=== PATIENT | female | born 1945 | race Hispanic/Latino ===

== ENCOUNTER 2017-10-05 18:13 | Observation (INO) | payer MEDICARE ==
[2017-10-05 18:36] LABS: #Basophils 0.1 thou/uL (0.0-0.2); #Eosinphils 0.3 thou/uL (0.0-0.7); #Lymphocytes 2.4 thou/uL (1.20-3.40); #Monocytes 0.9 thou/uL (0.11-0.59); #Neutrophils 6.7 thou/uL (1.40-6.50); %Eosinophils 2.5 % (0.0-10.0); %Lymphocytes 23.3 % (21.0-51.0); %Monocytes 8.5 % (0.0-10.0); %Neutrophils 64.7 % (42.0-75.0); Hemoglobin 11.1 g/dL (12.0-16.0); Mean Corpuscular HGB CONC 34.2 g/dL (32.0-36.0); Mean Corpuscular Volume 84.9 fL (78.0-98.0); Mean Platelet Volume 6.7 fL (7.4-10.4); Platelet Count 306 thou/uL (130-400); Red Blood Cell (RBC) Count 3.81 mill/uL (4.20-5.40); White Blood Cell (WBC) Count 10.4 thou/uL (4.8-10.8)
[2017-10-05 18:43] LABS: PTT 28.5 SEC (22.9-36.1); Prothrombin Time 13.6 SEC (12.0-14.7)
[2017-10-05 18:50] LABS: ALT (SGPT) 17 U/L (8-55); AST (SGOT) 21 U/L (5-34); Albumin 3.8 g/dL (3.4-4.8); Alkaline Phosphatase 111 U/L (40-150); Anion Gap 12 mmol/L (10-20); BUN (Urea Nitrogen) 23 mg/dL (9.8-20.1); Bilirubin, Total 0.3 mg/dL (0.2-1.2); Calc. Creatinine Clearance 0 mL/min (70-130); Calcium 8.9 mg/dL (7.8-10.44); Carbon Dioxide 30 mmol/L (23-31); Chloride 103 mmol/L (98-107); Estimated GFR-MDRD 45; Globulin 3.3 g/dL (2.4-3.5); Glucose 148 mg/dL (83-110); Potassium 4.2 mmol/L (3.5-5.1); Protein, Total 7.1 g/dL (6.0-8.3); Sodium 141 mmol/L (136-145)
[2017-10-05 18:54] LABS: CKMB 1.5 ng/mL (0-6.6); Troponin I Less than 0.010 ng/mL (< 0.028)
--- NOTE | 2017-10-05 19:02 | CT ---
NONCONTRAST HEAD CT: 10/05/17 HISTORY: Stroke activation. Left sided facial droop. Right sided numbness. Patient last seen normal at 11 a.m. TECHNIQUE: Noncontrast head CT is performed from skull base to skull vertex. FINDINGS: No parenchymal hemorrhage. No extra-axial hematoma. No midline shift. Basilar cisterns are patent. Br ain volume, age appropriate. Cortical carlton-white matter differentiation is preserved. Ventricles and sulci are patent and symmetric. White matter hypodensities due to chronic small vessel ischemic abdalla es are noted. Adequate aeration of the sinuses and mastoid air cells. Calvarium is intact. There is cavernous carot id atherosclerosis. 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 IMPRESSION: No acute intracranial process. Results of the study discussed with Dr. Lozada. 10/05/17 at 6:41 p.m. Code CR POS: ROHAN
[2017-10-05] MEDS ORDERED: Acetaminophen 325 MG TAB PO PRN (22:07)
[2017-10-05] MEDS ORDERED: hydrALAZINE 20 MG/ML VIAL SLOW IVP PRN (22:08)
[2017-10-05] MEDS ORDERED: Melatonin 3 MG TAB PO PRN (22:09)
[2017-10-05 23:23] VITALS: BMI 23.1
[2017-10-06 05:30] LABS: #Eosinphils 0.4 thou/uL (0.0-0.7); #Lymphocytes 2.5 thou/uL (1.20-3.40); #Neutrophils 8.1 thou/uL (1.40-6.50); %Basophils 0.4 % (0.0-1.0); %Eosinophils 3.2 % (0.0-10.0); %Lymphocytes 20.6 % (21.0-51.0); %Monocytes 8.1 % (0.0-10.0); %Neutrophils 67.7 % (42.0-75.0); Hemoglobin 10.2 g/dL (12.0-16.0); Mean Corpuscular HGB CONC 34.4 g/dL (32.0-36.0); Mean Corpuscular Hemoglobin 29.3 pg (27.0-31.0); Mean Corpuscular Volume 85.4 fL (78.0-98.0); Mean Platelet Volume 6.8 fL (7.4-10.4); Platelet Count 298 thou/uL (130-400); RBC Distribution Width 12.2 % (11.5-14.5); Red Blood Cell (RBC) Count 3.47 mill/uL (4.20-5.40); White Blood Cell (WBC) Count 11.9 thou/uL (4.8-10.8)
[2017-10-06 05:46] LABS: Anion Gap 12 mmol/L (10-20); BUN (Urea Nitrogen) 21 mg/dL (9.8-20.1); Calc. Creatinine Clearance 45 mL/min (70-130); Calcium 8.6 mg/dL (7.8-10.44); Carbon Dioxide 27 mmol/L (23-31); Cardiac Risk 4.6 (Less than 4.5); Chloride 105 mmol/L (98-107); Cholesterol 189 mg/dl (< 200 Desired); Estimated GFR-MDRD 52; Glucose 184 mg/dL (83-110); HDL Cholesterol 41 mg/dL (>60 Neg Risk); LDL Cholesterol, Calculated 72 mg/dL; Potassium 4.2 mmol/L (3.5-5.1); Sodium 140 mmol/L (136-145); Triglycerides 380 mg/dL (Less than 150)
[2017-10-06] MEDS ORDERED: Magnesium Sulfate 4 GM in Sodium Chloride 0.9% 250 ML 250 ML IVPB SCH (07:00)
--- NOTE | 2017-10-06 07:21 | HP ---
CHIEF COMPLAINT: Right-sided facial weakness. HISTORY OF PRESENT ILLNESS: Patient is a very pleasant 72-year-old female with a history of diabetes and hypertension who presented to the hospital with complaints of right-sided weakness. Patient sta ricardo that she was in her well state of health when she started noticing her right-sided facial droop a nd had some slurring of speech. Patient stated that her granddaughter noticed that she had significa nt droopiness of her right lower face and also her right eyelid. The patient stated that two days ag o, she had some nausea, some headache and some sinus pain for which she went into her walk-in clinic and was prescribed Augmentin and was diagnosed with sinusitis. She denies any chest pain, fevers, ch ills, nausea, shortness of breath or any other abnormalities. The patient denies any right upper ext remity and right lower extremity weakness. PAST MEDICAL HISTORY: She has a history of diabetes, hypertension, hyperlipidemia. 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 SOCIAL HISTORY: She still continues to smoke 3-4 cigarettes a week socially and denies any alcohol o r drug use. FAMILY HISTORY: Mother and father both had diabetes and heart problems. Father at the a ge of 59. Mother is still living at 74. REVIEW OF SYSTEMS: All negative except for the ones mentioned above in the HPI. PHYSICAL EXAMINATION: VITAL SIGNS: Temperature of 98.2, 79, 18, 97% on room air, blood pressure 191/86. GENERAL: She is awake, alert, oriented x3, does not appear in distress. CARDIOVASCULAR: S1, S2 present. No murmurs, rubs or gallops. LUNGS: Clear to auscultation, no rhonchi or wheezes noted. ABDOMEN: Soft, nontender. Bowel sounds are present x2. EXTREMITIES: She does have a below the knee amputation of the left lower extremity, right lower extr emity is intact. NEUROLOGIC: She does have droopiness noted in her right lower facial area; however, she is able to r aise her eyebrows. She is unable to wrinkle her forehead and she is unable to puff her cheeks. Her bilateral upper extremity strength is intact 5/5, lower extremity right leg strength is intact, sensa tion to bilateral upper facial area is intact and bilateral upper extremity and lower extremity is in tact. Wkqkjg-de-rnuu is intact. Dysdiadochokinesia is intact and no pronator drift noted. LABORATORY DATA: As the following: WBC is 10.4, hemoglobin of 11.1, hematocrit of 32.4, platelets o f 306. Sodium 141, potassium 4.2, chloride 103, BUN of 23, creatinine 1.17, sugar of 148. Troponin x1 was negative. ASSESSMENT AND PLAN: The patient is a very pleasant 72-year-old female who presented to the hospital for possible right-sided weakness. 1. Right-sided weakness could be secondary to transient ischemic attack versus a Rose's palsy. The patient has recently been diagnosed with sinusitis, which I believe most likely secondary to viral si nce its onset was only 2-3 days and she had no significant nasal drainage. However, given her risk f actors of being a diabetic, hypertension and her age, we will do a stroke workup including an MRI bra in and echocardiogram and carotid Dopplers. Her CT of the head was normal. It just indicated some w moses matter hypodensity due to chronic small vessel ischemic changes related and also we will check a lipid panel. 2. Diabetes. We will continue patient's home dose of insulin and also put on sliding scale as neede d. 3. Chronic kidney disease, appears a creatinine of 1.17. We will continue to monitor. 4. Deep venous thrombosis prophylaxis. We will put the patient on some subcu heparin.
[2017-10-06] MEDS ORDERED: Prevnar 13-Val Conj/PF 0.5 ML SYRINGE IM ONE (09:00)
[2017-10-06] MEDS ORDERED: Atenolol 25 MG TAB PO SCH (09:00)
[2017-10-06] MEDS ORDERED: Enoxaparin Sodium 40 MG/0.4 ML SYRINGE SC SCH (09:00)
[2017-10-06] MEDS ORDERED: Insulin Glargine 24 UNITS in Pre-Filled Syringe 1 EACH SC SCH (09:00)
[2017-10-06] MEDS ORDERED: Aspirin 81 mg Enteric Coated Tablet PO SCH (09:00)
[2017-10-06] MEDS ORDERED: LEVEMIR 24 UNIT SQ SCH (09:00)
[2017-10-06] MEDS ORDERED: Amoxicillin/Potassium Clav 875 MG TAB PO SCH (09:00)
--- NOTE | 2017-10-06 10:38 | MRI ---
MRI BRAIN WITHOUT CONTRAST: Date: 10/06/17 Multiplanar, multisequential imaging of brain obtained according to brain protocol. INDICATION: Stroke. Generalized weakness. Correlation made to CT head performed yesterday evening. FINDINGS: There is cortical atrophy. Moderate to severe chronic ischemic white matter change. No evidence of re stricted diffusion. There is no evidence of acute infarct. There is no evidence of mass or edema. No evidence of hemorrhage. The intracranial internal carotid arteries, proximal cerebral arteries, and basilar artery show flow- voids. Paranasal sinuses and mastoids appear clear. IMPRESSION: Moderate cortical atrophy and moderate to severe chronic ischemic white matter change. No evidence of acute infarct. POS: ROHAN
--- NOTE | 2017-10-06 11:12 | PDOC.EVN ---
Event Note - Event Note Event Note: EVALUATED PATIENT. STILL HAS SOME RIGHT FACIAL DROOP. SHE DOES ADMIT TO SYMPTOMS OF A VIRAL SYNDROME THE DAY BEFORE THE ONSET OF THESE SYMPTOMS. MRI WITH NO ACUTE FINDINGS. STRONGLY SUSPECT ROONEY'S PALSY. START PREDNISONE AND VALACYCLOVIR. WILL NOT ORDER CAROTID DOPPLERS AT THIS TIME UNLESS NEUROLOGY FEELS OTHERWISE. WILL AWAIT NEURO EVAL.
[2017-10-06 11:36] VITALS: TEMP 98.6
[2017-10-06] MEDS ORDERED: predniSONE 20 MG TAB PO SCH (12:00)
[2017-10-06] MEDS ORDERED: predniSONE 50 MG TAB PO SCH (12:00)
[2017-10-06] MEDS ORDERED: valACYclovir 500 MG TAB PO SCH (15:00)
[2017-10-06 15:47] VITALS: BP 205/95
[2017-10-06] MEDS ORDERED: Insulin NPH/Reg Insulin Hm 300 UNITS/3 ML VIAL SC SCH (21:00)
[2017-10-06] MEDS ORDERED: Non-Formulary Item 1 EACH (Insulin Aspart Prot/Insuln Asp [Novolog Mix 70-30 Flexpen Syrn SQ SCH (21:00)
[2017-10-06] MEDS ORDERED: Atorvastatin Calcium 40 MG TAB PO SCH (21:00)
[2017-10-06] MEDS ORDERED: Rosuvastatin 10 MG TAB PO SCH (21:00)
--- NOTE | 2017-10-06 21:19 | CON ---
DATE OF CONSULTATION: 10/06/2017 REFERRING PHYSICIAN: Zee Blank MD REASON FOR CONSULTATION: Right facial weakness. HISTORY OF PRESENT ILLNESS: Ms. Wagner is a pleasant 72-year-old female who has been co nsulted for evaluation of right facial weakness. She reports that on yesterday, she started noticing numbness in the right perioral region. Later on in the day, her granddaughter noticed that her righ t side of the face was drooping. She also noticed the right eyelid droop. This concerned them that s he may be having acute stroke and thus she was brought to the [facility]. She denied having any numbness, tingling or weakness in upper or lower extremities. She denied difficulty with balance. She denied chest pain, palpitation, headache, lightheadedness or dizziness. She did compla in of having blurry vision in the right eye. PAST MEDICAL HISTORY: Significant for hypertension, diabetes, hyperlipidemia. PAST SURGICAL HISTORY: Significant for left BKA due to diabetic ulcers. SOCIAL HISTORY: She smokes 3-4 cigarettes a week. She denies alcohol use or illicit drug use. FAMILY HISTORY: Significant for mother and father with diabetes and heart problems. CURRENT MEDICATIONS: Please review MAR. ALLERGIES: No known drug allergies. REVIEW OF SYSTEMS: As mentioned above, which was negative. PHYSICAL EXAMINATION: VITAL SIGNS: Blood pressure of 143/67, pulse of 76, temperature of 98.6, respirations of 16, O2 sats of 97% on room air. GENERAL: Well-developed, well-nourished female, in no apparent distress. RESPIRATORY: Clear to auscultation bilaterally. CARDIOVASCULAR: Regular rate and rhythm. NEUROLOGIC: Mental status: The patient is awake, alert, oriented x3. Speech and language: Fluent speech. Cranial nerves: Pupils are 3 mm and reactive. Visual palomino are intact. Extraocular muscl es are intact. No nystagmus is noted. There is an unusual finding in the left, she has weakness in the left eyelid closure and left face. There is a loss of left nasolabial fold; however, patient is complaining of right-sided numbness and weakness. Motor exam showed normal tone and bulk with a 5/5 strength in both upper extremities and right lower extremity. She has a left BKA. Sensory: Sensati on is intact and symmetric. Deep tendon reflexes 2+ reflexes in both upper extremities and right low er extremity. Babinski: Plantar responses flexion on the right side, unable to perform on the left side. Coordination intact to cxijrr-vbqp-pzxdnd and finger tapping bilaterally. LABORATORY DATA: Reviewed, which included CBC, coag panel, CMP, lipid profile, which is significant for WBC of 11.9, hemoglobin 10.2, hematocrit 29.6, glucose of 381, total cholesterol 189, LDL of 72, HDL 41 and triglycerides of 380, otherwise unremarkable. IMAGING STUDIES: MRI brain without contrast was reviewed, which showed no acute intracranial abnorma lity. IMPRESSION: Rose's palsy. Ms. Wagner is a pleasant 72-year-old female who presented wit h the facial numbness and weakness. Per exam, she has a left facial weakness rather than the right f acial weakness, although she feels her right side being weak. In any case, her MRI brain has showed no acute intracranial abnormality. Her symptoms are likely due to Rose's palsy. This is likely in r esponse to recent sinus infection that she had 2-3 days ago. At this time, I would recommend startin g her on prednisone taper along with Valtrex 500 mg q.8 hours for 7 days. The patient was advised to put Artificial Tears drops in both eyes every 4-6 hours for the 5-7 days. She is okay to be dischar ged to home and follow up with her primary care physician.
[2017-10-07] MEDS ORDERED: predniSONE 20 MG TAB PO SCH (08:00)
[2017-10-07] MEDS ORDERED: predniSONE 50 MG TAB PO SCH (08:00)
[2017-10-07] MEDS ORDERED: glipiZIDE 10 MG TAB PO SCH (09:00)
--- NOTE | 2017-10-08 11:30 | DIS ---
DATE OF ADMISSION: 10/05/2017 DATE OF DISCHARGE: 10/06/2017 DISCHARGE DIAGNOSES: 1. Rose's palsy. 2. Diabetes. 3. Hypertension. 4. Hyperlipidemia. 5. History of left bilateral knee amputation due to diabetic ulcers. 6. Tobacco abuse, but limited. HISTORY: This patient is a 72-year-old female with the history of diabetes, hypertension, and hyperl ipidemia who had the abrupt onset of some slurred speech and facial numbness. The patient primarily was experiencing numbness on the right side of her face. On further questioning, the patient reporte d that she did experience some fever, generalized fatigue and malaise on the day prior to the onset o f these symptoms. She had seen her PCP and was diagnosed with a sinus infection. The patient had no other significant related neurological symptoms. She did feel like her speech was slightly better a nd she was swallowing adequately. She initially had a CT scan performed when she presented to the em ergency department, which was basically unremarkable for any acute intracranial process. HOSPITAL COURSE: The patient was placed in observation for possible transient ischemic attack versus stroke versus Rose's palsy. She subsequently underwent an MRI, which showed only moderate cortical atrophy and moderate to severe chronic ischemic white matter changes. There is no evidence of acute stroke. Echocardiogram was performed, which revealed a normal ejection fraction at 60%-65% with poss ible diastolic dysfunction. The patient's symptoms remain largely unchanged. She was evaluated by Dr. Kumar and Neurology. While the patient's facial numbness type symptoms were more related to the right side, she was experiencing more weakness on the left side of her face. How ever, given the generally negative workup in the antecedent viral syndrome, it was felt strongly that this patient had Rose's palsy rather than an ischemic event. It was felt that the patient was stabl e for discharge to home. DISPOSITION: The patient will be discharged to home. Her activity will be as tolerated. She will b e on a diabetic diet. DISCHARGE MEDICATIONS: She will have prednisone 60 mg daily for a total of 6 days and then taper by 10 mg per day until complete. She will have valacyclovir 1000 mg p.o. t.i.d. She will have her usua l medications of atenolol 25 mg daily, sertraline 50 mg p.o. at bedtime, aspirin 81 mg daily, glipizi de 2 p.o. daily, rosuvastatin 10 mg p.o. at bedtime, enalapril 10 mg daily, Levemir 24 units subcu da monet, and 70/30 NovoLog mix 10 units b.i.d. She is to discontinue the amoxicillin.
== END 2017-10-06 18:09 | disposition home or self-care (01) ==
LOC: ERS 18:13 → 2SE 20:00
PROVIDERS: ADMIT Family Medicine; ATTEND Family Medicine
DX: G51.0 Bell's palsy (principal); I12.9 Hypertensive chronic kidney disease with stage 1 through stage 4 chronic kidney disease, or unspecified chronic kidney disease; E11.22 Type 2 diabetes mellitus with diabetic chronic kidney disease; N18.9 Chronic kidney disease, unspecified; E78.5 Hyperlipidemia, unspecified; F17.210 Nicotine dependence, cigarettes, uncomplicated
CPT/HCPCS: 70450; 70551; 80048; 80053; 80061; 82553; 82962 ×2; 83735; 84484; 85025 ×2; 85610; 85730; 93005; 93306; 96365; 96366; 96375; 96376; 97139; 99285; G0378; G8978; G8979; G8980; 36415; 36416; A4216; G8996-GN-CJ; G8997-GN-CJ; G8998-GN-CJ; J0360; J1650; J3475; J7050; J7506

== ENCOUNTER 2019-05-27 12:07 | Outpatient (CLI) | payer MEDICARE ==
--- NOTE | 2019-05-27 14:48 | RAD ---
9THREE VIEWS OF THE RIGHT TOES: 05/27/19 COMPARISON: None. HISTORY: Diabetic foot ulcer in the plantar aspect of the great toe. FINDINGS: There is extensive atherosclerotic calcification involving the imaged forefoot. There is prominent de generative change at the first metatarsophalangeal joint with joint space narrowing, subchondral scle rosis and osteophyte formation. No evidence for osseous destruction. No subcutaneous gas or radiopaqu e foreign body. No acute fracture or dislocation. Degenerative change and atherosclerotic disease. No acute fracture or dislocation. If there is clinic al concern for osteomyelitis, MRI advised. IMPRESSION: No acute findings. Prominent degenerative change at the first metatarsophalangeal joint. Atherosclero tic disease. POS: TPC
== END 2019-05-27 12:08 | disposition home or self-care (01) ==
LOC: BICRAD 12:07
PROVIDERS: ATTEND Podiatrist
DX: E11.621 Type 2 diabetes mellitus with foot ulcer (principal); L97.519 Non-pressure chronic ulcer of other part of right foot with unspecified severity; I73.9 Peripheral vascular disease, unspecified; M19.071 Primary osteoarthritis, right ankle and foot; I70.90 Unspecified atherosclerosis

== ENCOUNTER 2019-06-19 18:43 | Inpatient (IN) | payer MEDICARE ==
--- NOTE | 2019-06-19 19:23 | RAD ---
RIGHT FOOT THREE VIEW: 06/19/19 HISTORY: Pain. Black toe. COMPARISON: Radiograph 05/27/19. FINDINGS: There is high grade soft tissue swelling of the great toe especially around the distal phalanx. Mild hallux valgus deformity. Enthesopathic changes Achilles tendon, plantar fascia, and posterior tibial tendon insertions. Moderate vascular calcifications. Lisfranc interval appears to be maintained. No erosions or periostitis is appreciated. IMPRESSION: 1. Soft tissue swelling over the distal phalanx of the great toe can be from underlying infectio n. No definite evidence of osteomyelitis is yet appreciated. If clinically warranted, MRI is recommen ded. 2. Likely a plantar soft tissue ulcer along the medial plantar aspect of the great toe at the in terphalangeal joint location. POS: HOME
[2019-06-19 21:13] LABS: #Basophils 0.1 thou/uL (0.0-0.2); #Eosinphils 0.4 thou/uL (0.0-0.7); #Lymphocytes 2.4 thou/uL (1.20-3.40); #Monocytes 1.1 thou/uL (0.11-0.59); #Neutrophils 11.9 thou/uL (1.40-6.50); %Basophils 0.6 % (0.0-1.0); %Eosinophils 2.4 % (0.0-10.0); %Lymphocytes 15.1 % (21.0-51.0); %Monocytes 7.1 % (0.0-10.0); %Neutrophils 74.8 % (42.0-75.0); Hemoglobin 9.2 g/dL (12.0-16.0); Mean Corpuscular HGB CONC 33.1 g/dL (32.0-36.0); Mean Corpuscular Hemoglobin 28.3 pg (27.0-31.0); Mean Corpuscular Volume 85.5 fL (78.0-98.0); Platelet Count 509 thou/uL (130-400); RBC Distribution Width 11.6 % (11.5-14.5); Red Blood Cell (RBC) Count 3.24 mill/uL (4.20-5.40); White Blood Cell (WBC) Count 15.9 thou/uL (4.8-10.8)
[2019-06-19 21:33] LABS: ALT (SGPT) 8 U/L (8-55); AST (SGOT) 12 U/L (5-34); Albumin 3.7 g/dL (3.4-4.8); Alkaline Phosphatase 135 U/L (40-110); Anion Gap 16 mmol/L (10-20); BUN (Urea Nitrogen) 26 mg/dL (9.8-20.1); Bilirubin, Total 0.3 mg/dL (0.2-1.2); Calc. Creatinine Clearance 0 mL/min (70-130); Carbon Dioxide 24 mmol/L (23-31); Chloride 95 mmol/L (98-107); Estimated GFR-MDRD 26; Globulin 3.9 g/dL (2.4-3.5); Glucose 465 mg/dL (83-110); Potassium 3.9 mmol/L (3.5-5.1); Protein, Total 7.6 g/dL (6.0-8.3); Sodium 131 mmol/L (136-145)
[2019-06-19] MEDS ORDERED: Ondansetron PF 4 MG/2 ML Vial ONE (22:01)
[2019-06-19] MEDS ORDERED: Morphine 4 MG/ML VIAL ONE ×2 (22:01→23:35)
[2019-06-20] MEDS ORDERED: Cefepime 2 GM VIAL ONE (00:16)
[2019-06-20] MEDS ORDERED: hydrALAZINE 20 MG/ML VIAL ONE (00:43)
[2019-06-20] MEDS ORDERED: Vancomycin 1 GM/200 ML BAG ONE (01:13)
[2019-06-20 02:25] VITALS: BMI 21.6
[2019-06-20] MEDS ORDERED: Morphine 2 MG/ML SYRINGE SLOW IVP SCH (02:30)
[2019-06-20] MEDS: Sodium Chloride 0.9% 1,000 ML IV SCH ×2 (02:42→11:15)
[2019-06-20] MEDS ORDERED: Senokot S 8.6-50 MG TAB PO PRN (05:50)
[2019-06-20] MEDS: Morphine 2 MG/ML SYRINGE SLOW IVP PRN (07:31)
[2019-06-20] MEDS: Lactated Ringer's 1,000 ML IV SCH ×2 (07:31→20:24)
--- NOTE | 2019-06-20 09:53 | CON ---
DATE OF CONSULTATION: HISTORY OF PRESENT ILLNESS: This is an unfortunate 74-year-old female who has a nonhealing wound on her right great toe, having had a previous left nlvks-mwx-olyi amputation for a nonhealing wound on her left great toe about 7 years ago. The patient underwent angiography last month, and was found to have small-vessel disease with an angioplasty of a moderate SFA stenosis being performed, but nothing could be done with her tibioperoneal disease. Comorbidities include diabetes mellitus with an A1c of 10.2, smoking history of less than a pack a week, hypertension, and chronic kidney disease. MEDICATIONS: Include: 1. Levemir 10 units a day. 2. Enalapril 5 mg a day. 3. Aspirin 81 a day. 4. Sertraline 50 mg a day. 5. Amlodipine 5 mg a day. 6. Glipizide 20 mg a day. 7. Glimepiride 4 mg daily. 8. Tramadol for pain. ALLERGIES: NONE KNOWN. SOCIAL HISTORY: She lives with her family. As mentioned, slight social cigarette smoker. PAST SURGICAL HISTORY: 1. Hysterectomy. 2. Cholecystectomy. 3. Cataract surgeries. 4. Left qbpze-vqo-cwum amputation in 2011. 5. Lateral ray amputations in 2011. 6. Removal of 5th metatarsal head in 2011. PAST MEDICAL HISTORY: 1. Diabetes. 2. Hyperlipidemia. 3. Depression. 4. Chronic anemia. 5. Chronic kidney disease. 6. Hypertension. 7. Peripheral vascular disease. 8. History of West Nile encephalopathy. PHYSICAL EXAMINATION: GENERAL: An alert and cooperative lady. NECK: Soft carotid bruits bilaterally. CARDIAC: Regular rate and rhythm. No murmurs. LUNGS: Clear to auscultation. ABDOMEN: Soft and nontender. EXTREMITIES: She has palpable femoral and popliteal pulses with no pedal pulses in the right foot and an absent left leg below the knee. She has a Doppler signal in the right PT and DP with severely abnormal waveforms in the right lower leg. The skin around the great toe and 1st metatarsal head is somewhat grayish. She has a large black ulcer extending from the tip of the great toe medially down towards the base of the great toe with foul smelling. She has no edema of her foot. PLAN: At this time, based on her angiography and physical findings, I do not think that she has a potential to heal a ray amputation of her great toe and I have recommended a jbbzk-vco-nwec amputation, to which she has given informed consent. Job ID: [id number]
[2019-06-20] MEDS ORDERED: Ondansetron PF 4 MG/2 ML Vial ONE (10:27)
[2019-06-20] MEDS ORDERED: PROPOFOL 200 MG/20 ML VIAL ONE (10:27)
[2019-06-20] MEDS ORDERED: Bupivacaine HCl 0.5%/Epinephrine 1:200,000/PF 30 ml Vial ONE (10:27)
[2019-06-20] MEDS ORDERED: Lidocaine 1% PF 5 ML VIAL ONE (10:27)
[2019-06-20] MEDS ORDERED: Fentanyl 100 MCG/2 ML VIAL ONE ×3 (10:48→13:03)
[2019-06-20] MEDS ORDERED: Insulin Regular 300 UNITS/3 ML VIAL ONE (10:50)
[2019-06-20] MEDS ORDERED: Fentanyl 100 MCG/2 ML VIAL SLOW IVP PRN (13:01)
[2019-06-20] MEDS ORDERED: HYDROcodone/Acetaminophen 5/325 mg Tablet PO PRN (13:01)
[2019-06-20] MEDS ORDERED: Sodium Chloride 0.9% 10 ML ONE ×2 (13:04→13:05)
--- NOTE | 2019-06-20 14:14 | HP ---
CHIEF COMPLAINT: Right toe pain with ulcer. HISTORY OF PRESENT ILLNESS: The patient is a 74-year-old female with history of peripheral vascular disease, status post angioplasty; hypertension; hyperlipidemia; chronic kidney disease; and uncontrolled diabetes, who presented to the hospital with increasing pain in her right great toe for the past few weeks. The patient stated that her toe has started to change color into a darkish complexion for the past few days. She denies fever, chills, nausea, vomiting, palpitations, or dizziness. REVIEW OF SYSTEMS: Negative except as noted in HPI. PAST MEDICAL HISTORY: Diabetes mellitus, chronic kidney disease, hyperlipidemia, hypertension, and peripheral arterial disease. PAST SURGICAL HISTORY: Left below-knee amputation, hysterectomy, cholecystectomy, and cataract surgery. ALLERGIES: NO KNOWN ALLERGIES. PHYSICAL EXAMINATION: GENERAL: The patient is alert and oriented. HEENT: Her head is normocephalic and atraumatic. Extraocular muscles are intact. NECK: Supple. CARDIAC: Revealed regular rate and rhythm. Normal S1 and S2. No murmurs, rubs, or gallops. LUNGS: Clear to auscultation bilaterally. ABDOMEN: Soft and nontender. EXTREMITIES: Negative for pedal pulses. IMPRESSION: 1. Right great toe necrosis due to peripheral arterial disease. 2. Uncontrolled diabetes mellitus. 3. Hypertension. 4. Hyperlipidemia. 5. Chronic kidney disease. PLAN: The patient will be admitted to the hospital, and a surgical consultation will be obtained for possible amputation. Continue her home antihypertensive medications and Levemir and start insulin sliding scale. Job ID: [id number]
[2019-06-20] MEDS: Ondansetron PF 4 MG/2 ML Vial IVP PRN (14:32)
[2019-06-20] MEDS ORDERED: Amlodipine 10 MG TAB PO SCH (19:00)
[2019-06-20] MEDS: CEFAZOLIN 1 GM in Sodium Chloride 0.9% 100 ML IVPB SCH (20:19)
[2019-06-20] MEDS ORDERED: Dextrose 50% Abboject 50 ML SYRINGE SLOW IVP PRN (20:28)
[2019-06-20] MEDS ORDERED: Dextrose 5% in Water 1,000 ML IV PRN (20:28)
[2019-06-20] MEDS ORDERED: hydrALAZINE 20 MG/ML VIAL SLOW IVP PRN (20:30)
[2019-06-20] MEDS: HumaLOG 300 UNITS/3 ML VIAL SC PRN (21:11)
[2019-06-21] MEDS: Ondansetron PF 4 MG/2 ML Vial IVP PRN ×3 (02:39→20:11)
[2019-06-21] MEDS: Morphine 2 MG/ML SYRINGE SLOW IVP PRN ×2 (02:43→08:54)
[2019-06-21] MEDS: HYDROcodone/Acetaminophen 5/325 mg Tablet PO PRN ×2 (03:13→07:08)
[2019-06-21] MEDS: CEFAZOLIN 1 GM in Sodium Chloride 0.9% 100 ML IVPB SCH ×3 (03:16→20:12)
[2019-06-21] MEDS: Lactated Ringer's 1,000 ML IV SCH (03:17)
[2019-06-21] MEDS: HumaLOG 300 UNITS/3 ML VIAL SC PRN ×4 (05:40→20:13)
[2019-06-21 05:43] LABS: #Basophils 0.1 thou/uL (0.0-0.2); #Eosinphils 0.1 thou/uL (0.0-0.7); #Lymphocytes 1.4 thou/uL (1.20-3.40); #Monocytes 1.3 thou/uL (0.11-0.59); #Neutrophils 14.7 thou/uL (1.40-6.50); %Basophils 0.4 % (0.0-1.0); %Eosinophils 0.3 % (0.0-10.0); %Lymphocytes 8.2 % (21.0-51.0); %Monocytes 7.4 % (0.0-10.0); %Neutrophils 83.6 % (42.0-75.0); Hemoglobin 7.9 g/dL (12.0-16.0); Mean Corpuscular HGB CONC 34.1 g/dL (32.0-36.0); Mean Corpuscular Hemoglobin 29.1 pg (27.0-31.0); Mean Corpuscular Volume 85.5 fL (78.0-98.0); Mean Platelet Volume 6.7 fL (7.4-10.4); Platelet Count 411 thou/uL (130-400); RBC Distribution Width 11.6 % (11.5-14.5); Red Blood Cell (RBC) Count 2.72 mill/uL (4.20-5.40); White Blood Cell (WBC) Count 17.6 thou/uL (4.8-10.8)
[2019-06-21 06:05] LABS: Anion Gap 14 mmol/L (10-20); BUN (Urea Nitrogen) 15 mg/dL (9.8-20.1); Calc. Creatinine Clearance 30 mL/min (70-130); Carbon Dioxide 21 mmol/L (23-31); Chloride 103 mmol/L (98-107); Estimated GFR-MDRD 37; Glucose 264 mg/dL (83-110); Potassium 3.6 mmol/L (3.5-5.1); Sodium 134 mmol/L (136-145)
[2019-06-21] MEDS: Aspirin 81 mg Enteric Coated Tablet PO SCH (08:57)
[2019-06-21] MEDS: Amlodipine 5 MG TAB PO SCH (08:57)
[2019-06-21] MEDS ORDERED: Zolpidem Tartrate 5 MG TAB PO PRN ×2 (09:10→21:28)
[2019-06-21] MEDS ORDERED: fentaNYL Citrate/PF 2,000 MCG in Sodium Chloride 0.9% 60 ML IV PRN (09:10)
[2019-06-21] MEDS ORDERED: diphenhydrAMINE 25 MG CAP PO PRN ×2 (09:10→21:28)
[2019-06-21] MEDS ORDERED: Naloxone HCl 0.4 mg/ml Vial IV PRN ×2 (09:10→21:28)
[2019-06-21] MEDS ORDERED: Promethazine HCl 25 MG/ML VIAL IM PRN ×2 (09:10→21:28)
[2019-06-21] MEDS ORDERED: diphenhydrAMINE 50 MG/ML VIAL IM/IV PRN (09:10)
[2019-06-21] MEDS: Polyethylene Glycol 3350 17 GM Packet PO SCH (10:27)
--- NOTE | 2019-06-21 10:36 | OP ---
DATE OF PROCEDURE: 06/20/2019 PREOPERATIVE DIAGNOSIS: Gangrene, right foot. POSTOPERATIVE DIAGNOSIS: Gangrene, right foot. PROCEDURE PERFORMED: Right tzxzk-ibz-jbdc amputation. ANESTHESIA: General. ESTIMATED BLOOD LOSS: 150. DESCRIPTION OF PROCEDURE: After adequate anesthesia had been obtained, the patient was prepped and draped. An incision was made with a long posterior flap after being marked with the skin. Incision was made circumferentially along this posterior flap line and then the tibia was divided with a Gigli saw and the fibula divided more proximally with the ribs alanis. Following this, the amputation knife was used to complete the amputation. Major vascular structures were ligated individually with chromic suture. After irrigation, the muscle layers were reapproximated over the tibia, which had been rasped smooth. Skin was stapled and the patient is to be taken to the recovery room in guarded condition. Job ID: [id number]
[2019-06-21] MEDS ORDERED: Morphine 4 MG/ML VIAL SLOW IVP ONE (12:12)
[2019-06-21] MEDS: Acetaminophen 325 MG TAB PO PRN ×2 (12:15→20:59)
--- NOTE | 2019-06-21 12:18 | PDOC.HOSPP ---
- Subjective Encounter Date: 06/21/19 - Objective Vital Signs & Weight: Vital Signs (12 hours) Temp Pulse Resp BP Pulse Ox 06/21/19 11:07 98 173/87 H 06/21/19 10:55 98 175/75 H 06/21/19 10:40 98 187/79 H 06/21/19 10:35 97.8 F 103 H 20 195/87 H 100 06/21/19 07:17 98.8 F 98 14 150/80 H 98 06/21/19 03:36 98.7 F 99 18 178/79 H 99 Weight Weight 118 lb 4 oz I&O: 06/20/19 06/21/19 06/22/19 06:59 06:59 06:59 Intake Total 775 1000 Balance 775 1000 Result Diagrams: 06/21/19 05:32 06/21/19 05:32 Additional Labs: Accuchecks 06/21/19 06/21/19 06/20/19 11:11 05:25 19:24 POC Glucose 301 H 282 H 297 H 06/20/19 12:44 POC Glucose 231 H Hospitalist ROS - Medication Medications: Active Medications Generic Name Dose Route Start Last Admin Trade Name Freq PRN Reason Stop Dose Admin Amlodipine Besylate 5 mg 06/21/19 09:00 06/21/19 08:57 Norvasc PO 5 mg DAILY DESTINY Administration Aspirin 81 mg 06/21/19 09:00 06/21/19 08:57 Ecotrin PO 81 mg DAILY DESTINY Administration Cefazolin Sodium 1 gm/ Sodium 100 mls @ 200 mls/hr 06/20/19 20:00 06/21/19 03 :16 Chloride IVPB 100 mls Q8H DESTINY Administration Fentanyl Citrate 2,000 mcg/ 100 mls @ 0 mls/hr 06/21/19 09:10 06/21/19 10:14 Sodium Chloride IV 100 mls INF PRN Administration Pain As Directed Insulin Human Lispro 0 units 06/20/19 20:28 06/21/19 05:40 Humalog SC 4 unit .MILD SLIDING SCALE PRN Administration Mild Correctional Scale Insulin Human Lispro 0 units 06/20/19 20:28 06/20/19 21:11 Humalog SC 3 unit .BEDTIME SLIDING SC PRN Administration Bedtime Correctional Scale Polyethylene Glycol 17 gm 06/21/19 09:00 06/21/19 10:27 Miralax PO Not Given DAILY DESTINY Sertraline HCl 50 mg 06/20/19 21:00 06/20/19 21:10 Zoloft PO 50 mg HS DESTINY Administration - Exam General Appearance: awake alert (Crying from pain) ENT: normocephalic atraumatic Neck: supple, no JVD Respiratory: CTAB, no wheezes, no rales, no ronchi Gastrointestinal: soft, non-tender, non-distended, normal bowel sounds Hosp A/P (1) 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 Code(s): L97.514 - NON-PRS CHRONIC ULCER OTH PRT RIGHT FOOT W NECROSIS OF BONE Status: Acute (2) PVD (peripheral vascular disease) Code(s): I73.9 - PERIPHERAL VASCULAR DISEASE, UNSPECIFIED Status: Acute (3) CKD (chronic kidney disease) stage 3, GFR 30-59 ml/min Code(s): N18.3 - CHRONIC KIDNEY DISEASE, STAGE 3 (MODERATE) Status: Acute (4) Uncontrolled pain Code(s): R52 - PAIN, UNSPECIFIED Status: Acute (5) Sepsis Code(s): A41.9 - SEPSIS, UNSPECIFIED ORGANISM Status: Acute Qualifiers: Sepsis type: Pseudomonas Qualified Code(s): A41.52 - Sepsis due to Pseudomonas - Plan S/P R BKA Pain is uncontrolled Crying from pain on Fentanyl [employer] Give one dose of morphine 7mg and start gabapentin 300 mg daily Foot culture showing psudomonas. Awaiting final cultre and sensitivity data. Sepsis POA Start Zosyn
[2019-06-21] MEDS ORDERED: Morphine 4 MG/ML VIAL SLOW IVP SCH (13:00)
[2019-06-21] MEDS: Piperacillin/Tazobactam 3.375 GM in Sodium Chloride 0.9% 100 ML IVPB SCH (18:35)
[2019-06-21] MEDS: Gabapentin 300 MG CAP PO SCH (20:12)
[2019-06-21] MEDS ORDERED: diphenhydrAMINE 50 MG/ML VIAL IVP PRN (21:28)
[2019-06-21] MEDS ORDERED: diphenhydrAMINE 50 MG/ML VIAL IM PRN (21:28)
[2019-06-21] MEDS ORDERED: Ondansetron PF 4 MG/2 ML Vial IVP PRN (21:28)
[2019-06-21] MEDS ORDERED: Communication Order-Pharmacy FS SCH (21:30)
[2019-06-21] MEDS: HYDROmorphone 10 mg/100 ml CADD IVPB PRN (22:09)
[2019-06-22] MEDS: Piperacillin/Tazobactam 3.375 GM in Sodium Chloride 0.9% 100 ML IVPB SCH ×4 (00:01→18:08)
[2019-06-22] MEDS: CEFAZOLIN 1 GM in Sodium Chloride 0.9% 100 ML IVPB SCH ×3 (03:17→20:38)
[2019-06-22] MEDS: HumaLOG 300 UNITS/3 ML VIAL SC PRN ×3 (06:39→17:15)
[2019-06-22] MEDS ORDERED: Mag-Al 1200 mg/1200 mg/30 ML UDCUP PO SCH (07:15)
[2019-06-22] MEDS ORDERED: Pantoprazole 40 MG VIAL IVP SCH (07:15)
[2019-06-22] MEDS: Amlodipine 5 MG TAB PO SCH (08:26)
[2019-06-22] MEDS: Gabapentin 300 MG CAP PO SCH ×3 (08:26→20:39)
[2019-06-22] MEDS: Metoprolol Tartrate 25 MG TAB PO SCH ×2 (08:28→20:40)
[2019-06-22] MEDS: Polyethylene Glycol 3350 17 GM Packet PO SCH (08:28)
[2019-06-22] MEDS ORDERED: Aspirin 81 mg Enteric Coated Tablet PO SCH (08:30)
[2019-06-22] MEDS: Aspirin 81 mg Enteric Coated Tablet PO SCH (08:32)
[2019-06-22 09:05] LABS: Troponin I 0.208 ng/mL (< 0.028)
[2019-06-22 12:16] LABS: Troponin I 0.212 ng/mL (< 0.028)
[2019-06-22] MEDS ORDERED: Nitroglycerin 0.4 MG TAB (25 Tab Bottle) SL PRN (13:15)
[2019-06-22 14:42] LABS: Band 10 % (5-11); Eosinophils 1 % (0-10); Hemoglobin 7.5 g/dL (12.0-16.0); Hypochromia SLIGHT = 6-15 cells (100X) (0-5/hpf); Lymphocytes 7 % (21-51); MDiff Complete? YES; Mean Corpuscular HGB CONC 32.8 g/dL (32.0-36.0); Mean Corpuscular Hemoglobin 28.6 pg (27.0-31.0); Mean Corpuscular Volume 87.3 fL (78.0-98.0); Monocytes 9 % (0-10); Neutrophil 67 % (42-75); Platelet Count 455 thou/uL (130-400); Platelet Morphology Comment Appears Increased; Polychromasia SLIGHT = 2-3 cells (100X) (0-2/hpf); RBC Distribution Width 11.7 % (11.5-14.5); Reactive Lymphocytes 4 % (0-10); Red Blood Cell (RBC) Count 2.63 mill/uL (4.20-5.40); White Blood Cell (WBC) Count 18.1 thou/uL (4.8-10.8)
[2019-06-22 14:47] LABS: Troponin I 0.219 ng/mL (< 0.028)
[2019-06-22 14:49] LABS: Anion Gap 15 mmol/L (10-20); BUN (Urea Nitrogen) 17 mg/dL (9.8-20.1); Calc. Creatinine Clearance 17 mL/min (70-130); Carbon Dioxide 22 mmol/L (23-31); Chloride 104 mmol/L (98-107); Estimated GFR-MDRD 20; Glucose 180 mg/dL (83-110); Potassium 3.6 mmol/L (3.5-5.1); Sodium 137 mmol/L (136-145)
[2019-06-22] MEDS: HYDROmorphone 10 mg/100 ml CADD IVPB PRN (15:37)
--- NOTE | 2019-06-22 15:45 | PDOC.HOSPP ---
- Subjective Encounter Date: 06/22/19 Subjective: Her pain is controlled - Objective Vital Signs & Weight: Vital Signs (12 hours) Temp Pulse Resp BP Pulse Ox 06/22/19 11:02 98.6 F 86 18 131/71 96 06/22/19 07:26 99.0 F 97 16 158/74 H 99 06/22/19 04:05 98.1 F 102 H 16 132/72 98 Weight Weight 118 lb 4 oz I&O: 06/21/19 06/22/19 06/23/19 06:59 06:59 06:59 Intake Total 1000 1430 Output Total 750 Balance 1000 680 Result Diagrams: 06/22/19 13:57 06/22/19 13:57 Additional Labs: Accuchecks 06/22/19 06/22/19 06/22/19 12:08 09:07 05:52 POC Glucose 155 H 254 H 234 H 06/21/19 20:02 POC Glucose 270 H Hospitalist ROS - Medication Medications: Active Medications Generic Name Dose Route Start Last Admin Trade Name Freq PRN Reason Stop Dose Admin Acetaminophen 650 mg 06/20/19 05:50 06/21/19 20:59 Tylenol PO 650 mg Q4H PRN Administration Headache/Fever/Mild Pain (1-3) Amlodipine Besylate 5 mg 06/21/19 09:00 06/22/19 08:26 Norvasc PO 5 mg DAILY DESTINY Administration Aspirin 81 mg 06/21/19 09:00 06/22/19 08:32 Ecotrin PO Not Given DAILY DESTINY Diphenhydramine HCl 25 mg 06/21/19 09:10 06/21/19 20:59 Benadryl PO 25 mg Q3H PRN Administration Itching Gabapentin 300 mg 06/21/19 21:00 06/22/19 15:38 Neurontin PO 300 mg TID DESTINY Administration Hydralazine HCl 10 mg 06/20/19 20:30 06/21/19 20:12 Apresoline SLOW IVP 10 mg Q4H PRN Administration SBP Greater Than 180 Hydromorphone HCl 0 mg 06/21/19 21:28 06/22/19 15:37 Dilaudid Cadd IVPB 10 mg INF PRN Administration Pain Cefazolin Sodium 1 gm/ Sodium 100 mls @ 200 mls/hr 06/20/19 20:00 06/22/19 12 :21 Chloride IVPB 100 mls Q8H DESTINY Administration Piperacillin Sod/Tazobactam 100 mls @ 200 mls/hr 06/21/19 18:00 06/22/19 12: 20 Sod 3.375 gm/ Sodium Chloride IVPB 100 mls Q6HR DESTINY Administration Insulin Human Lispro 0 units 06/20/19 20:28 06/22/19 09:23 Humalog SC 4 unit .MILD SLIDING SCALE PRN Administration Mild Correctional Scale Insulin Human Lispro 0 units 06/20/19 20:28 06/21/19 20:13 Humalog SC 3 unit .BEDTIME SLIDING SC PRN Administration Bedtime Correctional Scale Metoprolol Tartrate 12.5 mg 06/22/19 09:00 06/22/19 08:28 Lopressor PO 12.5 mg BID DESTINY Administration Ondansetron HCl 4 mg 06/21/19 09:10 06/21/19 20:11 Zofran IVP 4 mg Q6H PRN Administration Nausea/Vomiting Polyethylene Glycol 17 gm 06/21/19 09:00 06/22/19 08:28 Miralax PO 17 gm DAILY DESTINY Administration Sertraline HCl 50 mg 06/20/19 21:00 06/21/19 20:12 Zoloft PO 50 mg HS DESTINY Administration - Exam General Appearance: awake alert ENT: normocephalic atraumatic Neck: supple Heart: RRR, no murmur, no gallops, no rubs, normal peripheral pulses Respiratory: CTAB, no wheezes, no rales, no ronchi, normal chest expansion Gastrointestinal: soft, non-tender, non-distended, normal bowel sounds Hosp A/P (1) 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 Code(s): L97.514 - NON-PRS CHRONIC ULCER OTH PRT RIGHT FOOT W NECROSIS OF BONE Status: Acute (2) PVD (peripheral vascular disease) Code(s): I73.9 - PERIPHERAL VASCULAR DISEASE, UNSPECIFIED Status: Acute (3) CKD (chronic kidney disease) stage 3, GFR 30-59 ml/min Code(s): N18.3 - CHRONIC KIDNEY DISEASE, STAGE 3 (MODERATE) Status: Acute (4) Uncontrolled pain Code(s): R52 - PAIN, UNSPECIFIED Status: Acute (5) Sepsis Code(s): A41.9 - SEPSIS, UNSPECIFIED ORGANISM Status: Acute Qualifiers: Sepsis type: Pseudomonas Qualified Code(s): A41.52 - Sepsis due to Pseudomonas - Plan 06/20: S/P R BKA Pain is uncontrolled Crying from pain on Fentanyl [employer] Give one dose of morphine 7mg and start gabapentin 300 mg daily Foot culture showing psudomonas. Awaiting final cultre and sensitivity data. Sepsis POA Start Zosyn 06/21: Her pain is better controlled on Dilaudid [employer]. Continue IV Zosyn for pseudomonas. Check hemoglobin tomorrow and transfuse as needed for level below 7.
[2019-06-22] MEDS: Atorvastatin Calcium 40 MG TAB PO SCH (20:39)
[2019-06-22] MEDS: Acetaminophen 325 MG TAB PO PRN (20:40)
[2019-06-23] MEDS: Piperacillin/Tazobactam 3.375 GM in Sodium Chloride 0.9% 100 ML IVPB SCH ×4 (00:28→22:34)
[2019-06-23] MEDS: CEFAZOLIN 1 GM in Sodium Chloride 0.9% 100 ML IVPB SCH (05:00)
[2019-06-23] MEDS: HumaLOG 300 UNITS/3 ML VIAL SC PRN ×4 (06:18→23:53)
[2019-06-23 06:39] LABS: Hemoglobin 6.8 g/dL (12.0-16.0); Mean Corpuscular HGB CONC 32.2 g/dL (32.0-36.0); Mean Corpuscular Hemoglobin 28.3 pg (27.0-31.0); Mean Platelet Volume 7.5 fL (7.4-10.4); Platelet Count 410 thou/uL (130-400); RBC Distribution Width 11.6 % (11.5-14.5); Red Blood Cell (RBC) Count 2.42 mill/uL (4.20-5.40); White Blood Cell (WBC) Count 17.3 thou/uL (4.8-10.8)
[2019-06-23 06:53] LABS: Band 3 % (5-11); Eosinophils 1 % (0-10); Lymphocytes 10 % (21-51); MDiff Complete? YES; Monocytes 8 % (0-10); Myelocyte 1 % (0-0); Neutrophil 77 % (42-75)
[2019-06-23] MEDS: Sodium Chloride 0.9% 1,000 ML IV SCH ×2 (07:00→11:41)
[2019-06-23 07:17] LABS: Anion Gap 15 mmol/L (10-20); BUN (Urea Nitrogen) 26 mg/dL (9.8-20.1); Calc. Creatinine Clearance 12 mL/min (70-130); Carbon Dioxide 20 mmol/L (23-31); Chloride 103 mmol/L (98-107); Estimated GFR-MDRD 13; Glucose 280 mg/dL (83-110); Potassium 3.6 mmol/L (3.5-5.1); Sodium 134 mmol/L (136-145)
[2019-06-23] MEDS: HYDROmorphone 10 mg/100 ml CADD IVPB PRN (08:54)
[2019-06-23] MEDS: Gabapentin 300 MG CAP PO SCH ×3 (09:01→22:29)
[2019-06-23] MEDS: Metoprolol Tartrate 25 MG TAB PO SCH ×2 (09:01→22:29)
[2019-06-23] MEDS: Amlodipine 5 MG TAB PO SCH (09:01)
[2019-06-23] MEDS: Aspirin 81 mg Enteric Coated Tablet PO SCH (09:01)
[2019-06-23 14:39] LABS: Potassium, Urine 33.8 mmol/L
--- NOTE | 2019-06-23 15:11 | PDOC.HOSPP ---
- Subjective Encounter Date: 06/23/19 Subjective: The patient's pain remains controlled - Objective Vital Signs & Weight: Vital Signs (12 hours) Temp Pulse Resp BP Pulse Ox 06/23/19 09:01 78 06/23/19 07:24 98.6 F 78 18 139/79 99 06/23/19 03:40 97.9 F 82 18 119/62 99 Weight Weight 118 lb 4 oz I&O: 06/22/19 06/23/19 06/24/19 06:59 06:59 06:59 Intake Total 6164 700 6595 Output Total 750 Balance 942 038 5843 Result Diagrams: 06/23/19 05:07 06/23/19 05:07 Additional Labs: Accuchecks 06/23/19 06/23/19 06/22/19 11:00 05:28 21:21 POC Glucose 336 H 309 H 198 H 06/22/19 15:29 POC Glucose 268 H Hospitalist ROS - Medication Medications: Active Medications Generic Name Dose Route Start Last Admin Trade Name Freq PRN Reason Stop Dose Admin Acetaminophen 650 mg 06/20/19 05:50 06/22/19 20:40 Tylenol PO 650 mg Q4H PRN Administration Headache/Fever/Mild Pain (1-3) Amlodipine Besylate 5 mg 06/21/19 09:00 06/23/19 09:01 Norvasc PO 5 mg DAILY DESTINY Administration Aspirin 81 mg 06/21/19 09:00 06/23/19 09:01 Ecotrin PO 81 mg DAILY DESTINY Administration Atorvastatin Calcium 40 mg 06/22/19 21:00 06/22/19 20:39 Lipitor PO 40 mg HS DESTINY Administration Diphenhydramine HCl 25 mg 06/21/19 09:10 06/21/19 20:59 Benadryl PO 25 mg Q3H PRN Administration Itching Gabapentin 300 mg 06/21/19 21:00 06/23/19 09:01 Neurontin PO 300 mg TID DESTINY Administration Hydralazine HCl 10 mg 06/20/19 20:30 06/21/19 20:12 Apresoline SLOW IVP 10 mg Q4H PRN Administration SBP Greater Than 180 Hydromorphone HCl 0 mg 06/21/19 21:28 06/23/19 08:54 Dilaudid Cadd IVPB 10 mg INF PRN Administration Pain Piperacillin Sod/Tazobactam 100 mls @ 200 mls/hr 06/21/19 18:00 06/23/19 11: 41 Sod 3.375 gm/ Sodium Chloride IVPB 100 mls Q6HR DESTINY Administration Sodium Chloride 1,000 mls @ 75 mls/hr 06/23/19 06:15 06/23/19 11:41 Normal Saline 0.9% IV 1,000 mls .[id number] DESITNY Administration Insulin Human Lispro 0 units 06/20/19 20:28 06/23/19 11:41 Humalog SC 5 unit .MILD SLIDING SCALE PRN Administration Mild Correctional Scale Insulin Human Lispro 0 units 06/20/19 20:28 06/21/19 20:13 Humalog SC 3 unit .BEDTIME SLIDING SC PRN Administration Bedtime Correctional Scale Metoprolol Tartrate 12.5 mg 06/22/19 09:00 06/23/19 09:01 Lopressor PO 12.5 mg BID DESTINY Administration Ondansetron HCl 4 mg 06/21/19 09:10 06/21/19 20:11 Zofran IVP 4 mg Q6H PRN Administration Nausea/Vomiting Sertraline HCl 50 mg 06/20/19 21:00 06/22/19 20:39 Zoloft PO 50 mg HS DESTINY Administration - Exam General Appearance: NAD, awake alert ENT: normocephalic atraumatic Neck: supple Heart: RRR, no murmur, no gallops, no rubs Respiratory: CTAB, no wheezes, no rales, no ronchi Gastrointestinal: soft, non-tender, non-distended, normal bowel sounds Hosp A/P (1) 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 Code(s): L97.514 - NON-PRS CHRONIC ULCER OTH PRT RIGHT FOOT W NECROSIS OF BONE Status: Acute (2) PVD (peripheral vascular disease) Code(s): I73.9 - PERIPHERAL VASCULAR DISEASE, UNSPECIFIED Status: Acute (3) CKD (chronic kidney disease) stage 3, GFR 30-59 ml/min Code(s): N18.3 - CHRONIC KIDNEY DISEASE, STAGE 3 (MODERATE) Status: Acute (4) Uncontrolled pain Code(s): R52 - PAIN, UNSPECIFIED Status: Acute (5) Sepsis Code(s): A41.9 - SEPSIS, UNSPECIFIED ORGANISM Status: Acute Qualifiers: Sepsis type: Pseudomonas Qualified Code(s): A41.52 - Sepsis due to Pseudomonas - Plan 06/20: S/P R BKA Pain is uncontrolled Crying from pain on Fentanyl FULL TIME Give one dose of morphine 7mg and start gabapentin 300 mg daily Foot culture showing psudomonas. Awaiting final cultre and sensitivity data. Sepsis POA Start Zosyn 06/21: Her pain is better controlled on Dilaudid FULL TIME. Continue IV Zosyn for pseudomonas. Check hemoglobin tomorrow and transfuse as needed for level below 7. 06/22: Hb level dropped less than 7 Transfuse 2 units of PRBCs Continue Antibiotics FULL TIME management per anesthesiology
[2019-06-23 18:56] LABS: Bilirubin Negative (Negative); Blood, Urine 2+ (Negative); Clarity Extra Turbid (Clear); Glucose, Urine (Dipstick) 300 mg/dL (Negative); Leukocyte Negative Leu/uL (Negative); Nitrite Negative (Negative); Protein, Urine (Dipstick) 300 mg/dL (Neg-Trace); Squamous Epithelial 0-3 HPF (0-3); Urobilinogen Normal mg/dL (Less than 2); WBC/HPF 21-50 HPF (0-3)
[2019-06-23 19:09] LABS: Bacteria/HPF 2+ HPF (None Seen)
--- NOTE | 2019-06-23 19:13 | CON ---
DATE OF CONSULTATION: HISTORY OF PRESENT ILLNESS: Ms. Wagner is a 74-year-old female, who was admitted for a gangrene of the right foot. She underwent a right BKA. We are now being consulted for her acute kidney injury on top of her chronic renal failure. I saw the patient back on May of 2019 and her creatinine at that time was at 1.98 mg%. REVIEW OF SYSTEMS: Passive for confusion. Positive for occasional right postop pain. No chest pain or shortness of breath. No nausea. No vomiting. No diarrhea. Decreased p.o. intake. No hematochezia. No melena. No hematemesis. No syncopal episode. No headache. No diplopia. No joint pains. MEDICATIONS: Currently on: 1. Acetaminophen 650 mg q.4 p.r.n. 2. Amlodipine 5 mg once a day. 3. Aspirin 81 mg tablet daily. 4. Atorvastatin 40 main mg at bedtime. 5. Currently on gabapentin 300 mg p.o. t.i.d. 6. Humalog sliding scale. 7. Metoprolol tartrate 12.5 mg p.o. b.i.d. 8. P.R.N. Naloxone. 9. Sodium chloride 75 mL/h. 10. Zofran 4 mg IV q.6 p.r.n. 11. Zosyn 3.375 g IV q.6 hours. 12. MiraLAX 17 g p.o. daily. PAST MEDICAL HISTORY: 1. Chronic renal failure from diabetic nephropathy. 2. Type 2 diabetes mellitus. 3. Peripheral vascular disease. 4. Hyperlipidemia. 5. History of depression. 6. History of diabetic retinopathy. PAST SURGICAL HISTORY: Recently status post right BKA, status post left BKA, status post hysterectomy, status post colonoscopy, and status post open cholecystectomy. SOCIAL HISTORY: The patient is and lives in [place]. Three natural children with two adopted children. She lives in with one of her children. She is currently smoking at seven cigarettes per week, but used to smoke one pack for the last 50 years. No IV drug abuse. No alcohol use. Retired farmworker [employer]. Education primary grade. FAMILY HISTORY: No family history of ESRD. ALLERGIES: NONE. TRAUMA: None. IMMUNIZATION: Up-to-date. HOSPITALIZATIONS: Please see past medical history. PHYSICAL EXAMINATION: VITAL SIGNS: Blood pressure 129/73, heart rate 92, respiratory rate 16, temperature 99, and pulse ox 96%. GENERAL: The patient is awake, confused/delirious, not in cardiorespiratory distress. SKIN: Adequate turgor. HEENT: Pale conjunctivae. Anicteric sclerae. NECK: No neck mass. No carotid bruits. No JVD. CHEST: No deformities. LUNGS: Clear breath sounds. No wheezing. No crackles. HEART: Normal sinus rhythm. No murmur. No gallops. No rubs. ABDOMEN: Globular, soft, and nontender. No masses. EXTREMITIES: Status post right BKA - wound dressing is intact. Status post left BKA. NEUROLOGIC: Confused and delirious, not in cardiorespiratory distress. Disoriented. Moving all extremities. LABORATORY DATA: Laboratories of June 23, 2019, white count 17.3 and hemoglobin 6.8. Sodium 134, potassium 3.6, chloride 103, carbon dioxide 20, BUN 26, creatinine 3.37, GFR 13 mL/minute, glucose 280, and calcium 8.0. Further review of her serum creatinine shows the followin. June 22, 2019, creatinine 2.38. 2. June 21, 2019, creatinine 1.39. 3. June 19, 2019, creatinine 1.89. 4. May 05, 2019, creatinine 1.98. October 06, 2017, cardiac echo showed a normal EF. ASSESSMENT AND PLAN: 1. Acute kidney injury, consider the possibility of hemodynamically mediated renal dysfunction. Of interest, the urine sodium is noted at 53 with a urine potassium of 33.8. Agree with empiric volume repletion. Currently, on normal saline at 75 mL/hour. She is also receiving 1 unit of packed red blood cells. We will order urinalysis to review the urine sediment and in order to rule out the possibility of acute tubular necrosis. There is no indication for any dialytic intervention. 2. Anemia. Agree with blood transfusion. 3. Status post gangrene of right foot. Currently, on IV Zosyn. We will adjust Zosyn from q.6 to q.8 hours due to the decreased GFR. Overall, agree with current management. There is no indication for any dialytic intervention. Job ID: [id number]
[2019-06-23] MEDS: Atorvastatin Calcium 40 MG TAB PO SCH (22:29)
[2019-06-24] MEDS: Acetaminophen 325 MG TAB PO PRN (00:18)
[2019-06-24] MEDS: Piperacillin/Tazobactam 3.375 GM in Sodium Chloride 0.9% 100 ML IVPB SCH (05:10)
[2019-06-24] MEDS: Sodium Chloride 0.9% 1,000 ML IV SCH (05:10)
[2019-06-24 05:54] LABS: Anion Gap 16 mmol/L (10-20); BUN (Urea Nitrogen) 30 mg/dL (9.8-20.1); Calc. Creatinine Clearance 11 mL/min (70-130); Calcium 7.7 mg/dL (7.8-10.44); Carbon Dioxide 17 mmol/L (23-31); Chloride 102 mmol/L (98-107); Estimated GFR-MDRD 11; Glucose 251 mg/dL (83-110); Potassium 3.7 mmol/L (3.5-5.1); Sodium 131 mmol/L (136-145)
[2019-06-24 06:01] LABS: Hemoglobin 8.9 g/dL (12.0-16.0); Mean Corpuscular HGB CONC 33.3 g/dL (32.0-36.0); Mean Corpuscular Hemoglobin 29.8 pg (27.0-31.0); Mean Corpuscular Volume 89.6 fL (78.0-98.0); RBC Distribution Width 12.8 % (11.5-14.5); Red Blood Cell (RBC) Count 2.98 mill/uL (4.20-5.40)
[2019-06-24] MEDS: HumaLOG 300 UNITS/3 ML VIAL SC PRN ×4 (06:40→21:27)
[2019-06-24 08:28] LABS: Mean Platelet Volume 7.5 fL (7.4-10.4); Platelet Count 370 thou/uL (130-400); White Blood Cell (WBC) Count 19.2 thou/uL (4.8-10.8)
[2019-06-24 08:39] LABS: Band 6 % (5-11); Lymphocytes 5 % (21-51); MDiff Complete? YES; Monocytes 4 % (0-10); Neutrophil 84 % (42-75); Platelet Morphology Comment Appears Adequate; Polychromasia SLIGHT = 2-3 cells (100X) (0-2/hpf)
[2019-06-24] MEDS: Gabapentin 300 MG CAP PO SCH ×2 (08:53→17:10)
[2019-06-24] MEDS: Aspirin 81 mg Enteric Coated Tablet PO SCH (08:53)
[2019-06-24] MEDS: Amlodipine 5 MG TAB PO SCH (08:53)
[2019-06-24] MEDS: Metoprolol Tartrate 25 MG TAB PO SCH ×2 (08:54→21:03)
--- NOTE | 2019-06-24 09:28 | PRG ---
DATE OF SERVICE: 06/24/2019 SUBJECTIVE: Ms. Wagner is a 74-year-old female, who was initially admitted for gangrenous right foot, underwent a right BKA and we are now following her up for her acute kidney injury on top of her chronic renal failure. We saw the patient yesterday and we felt that she had a hemodynamically-mediated renal dysfunction on top of her chronic renal failure. Her chronic renal failure is secondary to her diabetic nephropathy. She has been given volume repletion with slow improvement of the renal function. She voices no new complaints. The patient denies any chest pain or shortness of breath. OBJECTIVE: VITAL SIGNS: Blood pressure 143/77, heart rate 82, respiratory rate 14, temperature 97.6, and pulse ox 92%. GENERAL: The patient is awake, comfortable, not in overt distress. SKIN: Adequate turgor. HEENT: Slightly pale conjunctivae. Anicteric sclerae. NECK: No neck mass. No carotid bruits. No JVD. CHEST: No deformities. LUNGS: Clear breath sounds. HEART: Normal sinus rhythm. No murmur. No gallops. No rubs. ABDOMEN: Globular, soft, and nontender. No masses. EXTREMITIES: The patient is status post bilateral BKA. MEDICATIONS: Medications of June 24, 2019, reviewed. LABORATORY DATA: Laboratories of June 24, 2019; white count 19.2, hemoglobin 8.9. Sodium 131, potassium 3.7, chloride 102, carbon dioxide 17, BUN 30, creatinine 3.9, and calcium 7.7. ASSESSMENT AND PLAN: 1. Acute kidney injury/on top of chronic renal failure. Initially, we felt that she was improving her renal function. However, the repeat lab work today shows that creatinine was higher at 3.9. The urinalysis did not suggest acute tubular necrosis and suggested prerenal picture. For this reason, we will increase IV fluid from 75 mL/hour to 125 mL/hour. There is no indication for any dialytic intervention at the present time. 2. Anemia, improved with blood transfusion. 3. Urinary tract infection, currently on IV antibiotics. We will consider doing a urine C and S with this patient. 4. Diabetic gangrenous foot, right - the patient is status post below-knee amputation. Recheck basic metabolic panel and CBC in a.m. Job ID: [id number]
[2019-06-24] MEDS ORDERED: Sodium Chloride 0.9% 1,000 ML IV SCH (11:15)
--- NOTE | 2019-06-24 11:39 | RAD ---
Chest one view History: Dyspnea. Hypoxia. Comparison: 09/19/2018. Findings: Cardiac silhouette is magnified by projection and remains partially obscured by a markedly elevated right hemidiaphragm. Dense bilateral perihilar infiltrates are now present with air bronchograms and extension to the left lower lobe. Mediastinum remains midline. No evidence of pneumothorax. IMPRESSION: Dense bilateral perihilar infiltrates. Consider flash edema. Other findings are stable.
[2019-06-24] MEDS ORDERED: Lidocaine 5% Patch TD SCH (12:00)
[2019-06-24] MEDS ORDERED: traMADol HCl 50 MG TAB PO PRN ×2 (12:12)
[2019-06-24] MEDS ORDERED: Bumetanide 1 MG/4 ML VIAL IVP SCH (12:45)
[2019-06-24] MEDS: Furosemide 40 MG/4 ML VIAL ONE (12:54)
--- NOTE | 2019-06-24 15:16 | CON ---
DATE OF CONSULTATION: 06/24/2019 SERVICE: Pulmonary Medicine. REASON FOR CONSULTATION: Respiratory failure. HISTORY OF PRESENT ILLNESS: The patient is a very pleasant 74-year-old female with past medical history significant for peripheral vascular disease and a foot infection of the right toe. Based on the angiography, she was not going to be a good candidate for ray amputation because she did have an of blood flow to her foot. As such, she underwent a right BKA. She has chronic kidney disease. Prior to that amputation, she was hydrated, and an angiography was performed. She then went for surgery. Shortly thereafter, she developed an acute kidney injury, and she was hydrated over the last 72 hours. The kidney injury has been evolving. She started having increasing shortness of breath requiring escalating doses of oxygen. Eventually, she continued to have respiratory failure and was initiated on BiPAP because of severe respiratory distress. She was not having any fevers or chills. She is coughing, but not bringing up any phlegm. She denies any nausea, vomiting, or diarrhea. She was placed on BiPAP, respiratory effort, and her shortness of breath have significantly improved. PAST MEDICAL HISTORY: 1. Peripheral vascular disease. 2. Type 2 diabetes mellitus. 3. CKD 3. 4. Dyslipidemia. 5. Hypertension. PAST SURGICAL HISTORY: 1. Historic left below-knee amputation. 2. Recent right below-knee amputation. 3. Hysterectomy. 4. Cholecystectomy. 5. Cataract surgery, bilateral. FAMILY HISTORY: Noncontributory. SOCIAL HISTORY: Negative for alcohol, tobacco, or illicit drug use. She has no exposure to chemicals, dust, asbestos, or tuberculosis currently. ALLERGIES: NO KNOWN DRUG ALLERGIES. MEDICATIONS: List of her inpatient medications was reviewed. I discontinued her antibiotic. REVIEW OF SYSTEMS: General, head, ears, eyes, nose, throat, cardiovascular, respiratory, GI, , musculoskeletal, neurologic, and skin are negative except as mentioned in the HPI. Other than some neck stiffness, which improves with palpation. PHYSICAL EXAMINATION: VITAL SIGNS: Afebrile, pulse 82, blood pressure 136/75, respirations 14, and saturation 86% on room air and currently 97% on 40% FiO2 delivered via BiPAP. GENERAL: The patient is awake and alert, in no apparent distress. LUNGS: Good air entry bilaterally with crackling present. No prolonged expiratory phase or wheezing is appreciated. HEART: Normal rate. Regular. ABDOMEN: Soft, nontender, and nondistended. Bowel sounds are positive. MUSCULOSKELETAL: No cyanosis or clubbing. There is no pitting in the bilateral lower extremities. The stumps look clean dry and intact. NEUROLOGIC: Grossly nonfocal. LABORATORY DATA: WBC 19.2, hemoglobin 8.9, and platelets 370,000 and gently downtrending. Neutrophil count is 84% on top of 6% bands. There is 5% lymphocytes and 4% monocytes. These are downtrending. BNP 1590, which is in historic high. Creatinines are started trending up on the 15th, which is exactly two days after she got contrast had a surgery. The delta rising creatinine seems to be improving, though the creatinine is still trending upward gently. Basic metabolic profile is otherwise unremarkable. Troponins are elevated 2.2. Liver function studies were set up from several days ago are unremarkable. CRP is 7.25. ESR 53. Urinalysis is unremarkable. Blood cultures x2 are negative. Soft tissue culture was growing Proteus, but this soft tissue has been surgically removed. ASSESSMENT: 1. Acute hypoxic respiratory failure secondary to volume overload. 2. Acute kidney injury on chronic kidney disease 3, secondary to contrast- induced nephropathy, and acute tubular necrosis from recent surgery and intraoperative hypotension. 3. Soft tissue infection, status post below-knee amputation, resolved. 4. Systemic inflammatory response syndrome without evidence of current infection. DISCUSSION AND PLAN: I will suspend our antibiotics for the time being. Chest x-ray is consistent with volume overload event. I am doubtful we are dealing with a pneumonia currently. I agree with the Lasix. We will try to avoid additional injury to the kidneys and just simply give her supportive care through time. IV fluids have been appropriately interrupted. She is currently on BiPAP. We will give her breaks 3 times daily and increase if tolerated. Critical Care will continue to follow in this location. 70 minutes have been devoted to this patient in various activities. I personally reviewed all imaging studies and laboratory data noted within this document. For fifty percent of this time, I was interacting with the patient at the bedside or coordinating care with the care team. For the remainder of the time I was immediately available to the patient in the hospital unit. Job ID: [id number] [facility] CENTERHuy
[2019-06-24 16:50] LABS: Actual Bicarbonate (HCO3a) 16.1 mEq/L (22-28); Base Excess (BEa) -9.2 mEq/L (-2.0 to +3.0); CO2 Tension 32.8 mmHg (35.0-45.0); Calcium, Ionized 1.09 mmol/L (1.12-1.30); Carboxyhemoglobin (COHb) 0.9 gm% (0.0-3.0); Hemoglobin (Hb) 10.3 g/dL (12.0-16.0); O2 Tension (PaO2) 73.1 mmHg (> 70.0); Potassium - ABG Lab 3.69 mmol/L (3.70-5.30); pH, Arterial 7.31 (7.35-7.45)
[2019-06-24 16:53] LABS: Puncture Site RRA
[2019-06-24] MEDS: Sodium Bicarb 50 MEQ/50 ML VIAL IVP SCH (20:53)
[2019-06-24] MEDS ORDERED: Heparin 5,000 UNITS/ML VIAL SC SCH (21:00)
[2019-06-24] MEDS: Heparin 5,000 UNITS/ML VIAL SC SCH (21:03)
[2019-06-24] MEDS: Atorvastatin Calcium 40 MG TAB PO SCH (21:03)
--- NOTE | 2019-06-24 22:04 | PDOC.HOSPP ---
- Subjective Encounter Date: 06/24/19 Encounter Time: 10:00 - Objective Vital Signs & Weight: Vital Signs (12 hours) Temp Temp Pulse Pulse Pulse Pulse Pulse 06/24/19 20:00 98.3 F 06/24/19 18:34 96 06/24/19 14:37 06/24/19 14:08 86 06/24/19 12:42 97.9 F 88 80 86 83 06/24/19 12:25 06/24/19 11:05 97.9 F 82 Resp Resp Resp Resp Resp BP BP 06/24/19 20:00 06/24/19 18:34 06/24/19 14:37 06/24/19 14:08 06/24/19 12:42 28 H 34 H 32 H 28 H 144/76 H 179/92 H 06/24/19 12:25 06/24/19 11:05 14 BP BP BP Pulse Ox Pulse Ox Pulse Ox Pulse Ox 06/24/19 20:00 06/24/19 18:34 06/24/19 14:37 95 06/24/19 14:08 06/24/19 12:42 173/91 H 163/78 H 96 92 L 94 L 06/24/19 12:25 92 L 06/24/19 11:05 136/75 86 L Pulse Ox 06/24/19 20:00 06/24/19 18:34 06/24/19 14:37 06/24/19 14:08 06/24/19 12:42 97 06/24/19 12:25 06/24/19 11:05 Weight Weight 118 lb 4 oz I&O: 06/23/19 06/24/19 06/25/19 06:59 06:59 06:59 Intake Total 710 4420 1980 Output Total 1200 575 Balance 710 3220 1405 Result Diagrams: 06/24/19 05:01 06/24/19 05:01 Additional Labs: Accuchecks 06/24/19 06/24/19 06/24/19 20:34 16:23 12:49 POC Glucose 229 H 312 H 383 H 06/24/19 06/24/19 06/20/19 11:12 05:29 10:49 POC Glucose 295 H 261 H 355 H Hospitalist ROS - Medication Medications: Active Medications Generic Name Dose Route Start Last Admin Trade Name Freq PRN Reason Stop Dose Admin Acetaminophen 650 mg 06/20/19 05:50 06/24/19 00:18 Tylenol PO 650 mg Q4H PRN Administration Headache/Fever/Mild Pain (1-3) Albuterol/Ipratropium 3 ml 06/24/19 00:14 06/24/19 00:31 Duoneb NEB 3 ml Q6H PRN Administration SOB &/or Wheezing Amlodipine Besylate 5 mg 06/21/19 09:00 06/24/19 08:53 Norvasc PO 5 mg DAILY DESTINY Administration Aspirin 81 mg 06/21/19 09:00 06/24/19 08:53 Ecotrin PO 81 mg DAILY DESTINY Administration Atorvastatin Calcium 40 mg 06/22/19 21:00 06/24/19 21:03 Lipitor PO 40 mg HS DESTINY Administration Diphenhydramine HCl 25 mg 06/21/19 09:10 06/21/19 20:59 Benadryl PO 25 mg Q3H PRN Administration Itching Heparin Sodium (Porcine) 5,000 units 06/24/19 21:00 06/24/19 21:03 Heparin SC 5,000 units BID DESTINY Administration Hydralazine HCl 10 mg 06/20/19 20:30 06/21/19 20:12 Apresoline SLOW IVP 10 mg Q4H PRN Administration SBP Greater Than 180 Insulin Human Lispro 0 units 06/20/19 20:28 06/24/19 17:11 Humalog SC 5 unit .MILD SLIDING SCALE PRN Administration Mild Correctional Scale Insulin Human Lispro 0 units 06/20/19 20:28 06/24/19 21:27 Humalog SC 2 unit .BEDTIME SLIDING SC PRN Administration Bedtime Correctional Scale Metoprolol Tartrate 12.5 mg 06/22/19 09:00 06/24/19 21:03 Lopressor PO 12.5 mg BID DESTINY Administration Ondansetron HCl 4 mg 06/21/19 09:10 06/21/19 20:11 Zofran IVP 4 mg Q6H PRN Administration Nausea/Vomiting Sertraline HCl 50 mg 06/20/19 21:00 06/24/19 21:03 Zoloft PO 50 mg HS DESTINY Administration Sodium Bicarbonate 50 meq 06/24/19 20:00 06/24/19 20:53 Sodium Bicarbonate IVP 06/25/19 00:00 50 meq 2000,2359 DESTINY Administration Sodium Chloride 10 ml 06/20/19 02:06 06/24/19 20:54 Flush - Normal Saline IVF 10 ml PRN PRN Administration Saline Flush Tramadol HCl 50 mg 06/24/19 12:12 06/24/19 18:42 Ultram PO 50 mg Q6H PRN Administration PAIN SCALE 1-5 - Exam General Appearance: awake alert ENT: normocephalic atraumatic Neck: supple, no JVD Heart: RRR Respiratory: rhonchi, tachypneic Gastrointestinal: soft, non-tender, non-distended Hosp A/P (1) 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 Code(s): L97.514 - NON-PRS CHRONIC ULCER OTH PRT RIGHT FOOT W NECROSIS OF BONE Status: Acute (2) PVD (peripheral vascular disease) Code(s): I73.9 - PERIPHERAL VASCULAR DISEASE, UNSPECIFIED Status: Acute (3) CKD (chronic kidney disease) stage 3, GFR 30-59 ml/min Code(s): N18.3 - CHRONIC KIDNEY DISEASE, STAGE 3 (MODERATE) Status: Acute (4) Uncontrolled pain Code(s): R52 - PAIN, UNSPECIFIED Status: Acute (5) Sepsis Code(s): A41.9 - SEPSIS, UNSPECIFIED ORGANISM Status: Acute Qualifiers: Sepsis type: Pseudomonas Qualified Code(s): A41.52 - Sepsis due to Pseudomonas - Plan 06/20: S/P R BKA Pain is uncontrolled Crying from pain on Fentanyl SKEIN TIER Give one dose of morphine 7mg and start gabapentin 300 mg daily Foot culture showing psudomonas. Awaiting final cultre and sensitivity data. Sepsis POA Start Zosyn 06/21: Her pain is better controlled on Dilaudid SKEIN TIER. Continue IV Zosyn for pseudomonas. Check hemoglobin tomorrow and transfuse as needed for level below 7. 06/22: Hb level dropped less than 7 Transfuse 2 units of PRBCs Continue Antibiotics SKEIN TIER management per anesthesiology 06/23: The patient was seen and examined this morning. She was in state of respiratory distress. Her chest x-ray revealed pulmonary edema. Lasix was given and the patient was transitioned to ICU on BiPAP.
[2019-06-24] MEDS: Meropenem 500 MG in Sodium Chloride 0.9% 100 ML IVPB SCH (23:09)
[2019-06-24] MEDS ORDERED: Lidocaine Patch Removal 1 EACH TOP SCH (23:59)
[2019-06-25] MEDS: Sodium Bicarb 50 MEQ/50 ML VIAL IVP SCH (00:23)
[2019-06-25] MEDS: HYDROcodone/Acetaminophen 5/325 mg Tablet PO PRN ×4 (00:50→21:26)
[2019-06-25 04:08] LABS: Anion Gap 17 mmol/L (10-20); BUN (Urea Nitrogen) 33 mg/dL (9.8-20.1); Calc. Creatinine Clearance 10 mL/min (70-130); Calcium 7.8 mg/dL (7.8-10.44); Carbon Dioxide 20 mmol/L (23-31); Chloride 102 mmol/L (98-107); Estimated GFR-MDRD 11; Glucose 163 mg/dL (83-110); Potassium 3.2 mmol/L (3.5-5.1); Sodium 136 mmol/L (136-145)
[2019-06-25 04:16] LABS: Band 2 % (5-11); Eosinophils 1 % (0-10); Lymphocytes 6 % (21-51); MDiff Complete? YES; Mean Corpuscular HGB CONC 34.9 g/dL (32.0-36.0); Mean Corpuscular Hemoglobin 30.7 pg (27.0-31.0); Mean Platelet Volume 7.7 fL (7.4-10.4); Monocytes 6 % (0-10); Neutrophil 85 % (42-75); Platelet Count 393 thou/uL (130-400); Red Blood Cell (RBC) Count 2.94 mill/uL (4.20-5.40); White Blood Cell (WBC) Count 23.1 thou/uL (4.8-10.8)
[2019-06-25] MEDS: Lidocaine Patch Removal 1 EACH TOP SCH (04:58)
[2019-06-25] MEDS: Meropenem 500 MG in Sodium Chloride 0.9% 100 ML IVPB SCH ×3 (05:26→21:15)
[2019-06-25] MEDS: HumaLOG 300 UNITS/3 ML VIAL SC PRN ×4 (06:14→20:45)
--- NOTE | 2019-06-25 08:12 | CON ---
DATE OF CONSULTATION: 06/24/2019 REASON FOR CONSULTATION: Concern with possible sepsis. HISTORY OF PRESENT ILLNESS: A 74-year-old with history of type 2 diabetes mellitus, CKD stage 3, peripheral vascular disease with prior attempts at revascularization right and left side, and a previous left BKA, who presented to the emergency room with persistent right foot ulcer with pain associated with evidence of necrosis, which developed a week before admission. On arrival other than pain in the first toe right side, she did not have any other symptoms, specifically no dyspnea or chest pain. No abdominal pain or genitourinary symptoms. No bleeding or diarrhea. Other initial findings included sodium 131, creatinine 1.89 with a baseline of 1.63 on January 2019, alkaline phosphatase 135, transaminases normal , bilirubin 0.3, calcium 9.0, and glucose 355. The C-reactive protein is 7.25. Albumin was 3.7. White cell count is 15.9, hemoglobin 9.2, platelets 509,000, 74% neutrophils. Urinalysis with 21 to 50 wbc's. In view of the refractory nature of the peripheral vascular disease on the right side, she underwent a BK amputation on the right side as well by Dr. Romo. The pathology demonstrated ischemic ulceration with occlusive atherosclerosis with calcification. 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 On June 21, the patient had improvement in pain control. There was an improvement in her blood pressure as well. O2 sats remained between 96% and 98%. This was achieved with Dilaudid [employer]PERINTENDENT. The Zosyn was continued on June 22. Again, she was comfortable at rest and pain had been better controlled. O2 saturations were normal and she did not have a fever. There was a drop in her hemoglobin and she was transfused 2 units of packed red blood cells. There was noticeable worsening of her creatinine and Nephrology was consulted and they felt that she would have a hemodynamically-mediated renal dysfunction on top of her chronic renal failure. She was given IV fluid with improvement in renal function and subsequently, the patient developed progressively worsening dyspnea with requiring escalating doses of oxygen supplementation, was placed on BiPAP and transferred to the IMCU. Dr. Hanson was consulted and the impression was volume overload associated with the above chronic illnesses and acute interventions. Currently, Ms. Wagner is undergoing BiPAP management. She is awake, a little bit of difficulty with communication. She denies any headaches. No change in visual symptoms. Her mouth is dry. She has experienced some improvement in the dyspnea, but still quite labored breathing. No chest pain. No abdominal pain. She still has significant urine output, but has a Conde catheter inserted. Diuresis has been started with furosemide. We were asked to see the patient with concern regarding the possibility of Pseudomonas sepsis or some other organism associated sepsis. PAST MEDICAL HISTORY: Type 2 diabetes, peripheral vascular disease, CKD stage 3, dyslipidemia, hypertension, prior left BKA after failure of revascularization, and likewise in the right side now below-knee amputation after failure of revascularization associated with gangrene of the right foot. PAST SURGICAL HISTORY: Includes hysterectomy, cholecystectomy, and cataract operation. FAMILY HISTORY: Includes type 2 diabetes and coronary artery disease. SOCIAL HISTORY: She does have a history of smoking in the past, but not current. ALLERGIES: NONE. CURRENT MEDICATION LIST: 1. Tramadol. 2. Ambien. 3. Zoloft. 4. Zofran. 5. Nitrostat. 6. Narcan. 7. Lopressor. 8. Insulin. 9. Apresoline. 10. Heparin. 11. Benadryl. 12. Bumex. 13. Lipitor. 14. Ecotrin. 15. Norvasc. 16. DuoNeb. PHYSICAL EXAMINATION: VITAL SIGNS: T-max 101 on June 21 and now she is at 100.1 on June 22, pulse is 86, respirations 14, and O2 saturation 95% on BiPAP. SKIN: Shows the right BKA amputation and the left BKA sites appear to be intact. The patient has a peripheral IV access and a Conde catheter. No areas of pressure ulceration in the back. No lymphadenopathy. HEENT: Some element of periorbital edema. Pupils are 3 mm, reactive in right and left side. Conjunctivae are somewhat pale. Oral cavity with quite dry oral mucosa. Only a few remaining teeth in place with marked decay. NECK: Some jugular vein distention. LUNGS: With fairly clear breath sounds at the moment. HEART: S1 and S2 with diminished heart sounds. Regular rate. ABDOMEN: Soft. Not distended or tender. No ascites. No bladder distention. NEUROLOGIC: She is awake, some confusional state, was having some hallucinations, most likely toxic metabolic encephalopathy plus some opioid-induced delirium. LABORATORY DATA: White cell count has ranged from 15 to now 19.2, hemoglobin 8.9, platelets 370 with 84% neutrophils. The creatinine is up to 3.90. Two sets of blood cultures from June 18 with no growth at 48 hours and the lactic acid was 1.5 on June 18. IMAGING STUDIES: We have a chest x-ray from today, which showed findings consistent with flash pulmonary edema. There is a foot x-ray from admission with soft tissue swelling over the distal phalanx of the great toe and plantar soft tissue ulcer. This was before the amputation obviously. ASSESSMENT: Type 2 diabetes, peripheral vascular disease with failed revascularization, bilateral below knee amputations and decompensation following development of acute renal failure on top of chronic with volume overload associated with volume repletion in attempt to reverse her renal dysfunction. The patient has had low-grade temperature elevation and may have been bacteremic in the process and broad-spectrum antimicrobial coverage has been initiated. ASSESSMENT: 1. Fever. 2. Neutrophilia. 3. Pulmonary edema. 4. Pseudomonas aeruginosa isolated from the toe. DISCUSSION: Differential diagnosis includes neutrophilia from demargination associated with pulmonary edema, overlapping with possible transient bacteremia associated with the necrotic process in the right lower extremity. We will resume administration of Zosyn or Merrem until the picture clarifies itself. It looks like her platelet count is already starting to decrease, which would point to the resolution of the previous inflammatory process. Check procalcitonin and then hopefully discontinue antimicrobial in the next few days along with improvement in her pulmonary edema. Job ID: [id number] MTDD
--- NOTE | 2019-06-25 09:16 | PRG ---
DATE OF SERVICE: 06/25/2019 SUBJECTIVE: Ms. Wagner is a 74-year-old female with chronic renal failure and seen by the Renal Service for acute kidney injury. At that time, we felt that this was a hemodynamically-mediated renal dysfunction. The patient was initially admitted for right gangrenous foot and underwent a right BKA. During the evaluation by the Renal Service, she was given volume repletion, but she went to [facility]. For that reason, she was transferred to [facility]. She is currently on a diuretic regimen. Her breathing is actually much improved. OBJECTIVE: VITAL SIGNS: Blood pressure is noted at 152/84 with a heart rate of 90. GENERAL: Patient is awake, but confused, not in overt distress. SKIN: Adequate turgor. HEENT: Slightly pale conjunctivae. Anicteric sclerae. NECK: No neck mass. No carotid bruits. No JVD. CHEST: No deformities. LUNGS: Decreased breath sounds. HEART: Normal sinus rhythm. No murmur. No gallops. No rubs. ABDOMEN: Globular, soft, nontender, no masses. EXTREMITIES: No edema, no deformities. MEDICATIONS: Medications of June 25, 2019, reviewed. LABORATORY DATA: Laboratories of June 25, 2019, white count 23.1, hemoglobin 9. Sodium 136, potassium 3.2, chloride 102, carbon dioxide 20, BUN 33, creatinine 3.9, glucose 163. C-reactive protein is 20.81. June 24, 2019, BNP 1590. Chest x-ray of June 24, 2019, showed pulmonary edema. ASSESSMENT AND PLAN: 1. Congestive heart failure. Agree with current IV diuretics. The patient is diuresing with the current diuretic regimen. A cardiac echo has been done to determine the ejection fraction. We will also check for cardiac enzymes for this patient. 2. Acute kidney injury on top of chronic renal failure-consider hemodynamically mediated dysfunction. This could be a reflection of decreased cardiac output. Initially, we felt this was from volume depletion, but she did not tolerate IV volume repletion. We need to rule out cardiac dysfunction with this patient. 3. Leukocytosis. ID consult has been done. In addition, she has been converted to IV meropenem as per recommendation by Dr. Lakhani. Overall, prognosis remains guarded. Job ID: [id number]
[2019-06-25] MEDS: Aspirin 81 mg Enteric Coated Tablet PO SCH (09:17)
[2019-06-25] MEDS: Amlodipine 5 MG TAB PO SCH (09:17)
[2019-06-25] MEDS: Metoprolol Tartrate 25 MG TAB PO SCH ×2 (09:17→20:42)
[2019-06-25] MEDS: Heparin 5,000 UNITS/ML VIAL SC SCH ×2 (09:18→20:42)
[2019-06-25] MEDS: Bumetanide 1 MG/4 ML VIAL IVP SCH (09:19)
[2019-06-25 09:58] LABS: CKMB 2.8 ng/mL (0-6.6)
[2019-06-25] MEDS ORDERED: Potassium Chloride 20 MEQ TAB PO SCH (10:45)
[2019-06-25] MEDS ORDERED: Fluconazole 100 MG TAB PO SCH (12:45)
--- NOTE | 2019-06-25 12:56 | PRG ---
DATE OF SERVICE: 06/25/2019 SERVICE: Pulmonary Medicine. INTERVAL HISTORY: The patient is doing great from Respiratory standpoint. Mentation is improved. She took a break off with the BiPAP this morning, is doing quite well with it. Otherwise, there has been no interval change to her condition. PHYSICAL EXAMINATION: VITAL SIGNS: Afebrile currently with a T-max of 100.1 last on the 16th. Pulse 90, blood pressure 166/87, respirations 14, and saturation 94%, currently on 1 L nasal cannula. GENERAL: The patient is awake and alert, in no apparent distress. LUNGS: Good air entry. Minimal rhonchi are present. No prolonged expiratory phase or wheezing is appreciated. HEART: Normal rate and regular. ABDOMEN: Soft, nontender, and nondistended. Bowel sounds are positive. MUSCULOSKELETAL: No cyanosis or clubbing. There is no pitting in the bilateral lower extremities. She has bilateral BKAs. Her right stump is clean, dry, and intact. LABORATORY DATA: WBC 23.1, hemoglobin 9.0, platelets 393,000. Neutrophils are 85% on top of 2 bands. The band count is downtrending. Lymphocyte count is 6%. Monocytes are starting to rebound gently. Creatinine 3.97, which is peaking, BUN 33. Bicarb 20. Potassium 3.2. CRP has increased to 20.81, troponin 0.875, it is uptrending. Urine culture is growing yeast. There are greater than 100,000 colony-forming units. Blood cultures x2 are unremarkable. ASSESSMENT: 1. Acute hypoxic respiratory failure secondary to volume overload. 2. Acute kidney injury on chronic kidney disease 3, possibly acute tubular necrosis. 3. Soft tissue infection, status post below-knee amputation on the right. 4. Systemic inflammatory response syndrome, improving. DISCUSSION AND PLAN: The patient's band count is dropping. Her white blood cell count increased ever so slightly. Hemodynamically, she is stable from a Respiratory standpoint, she has made a dramatic improvement. From my perspective, she is stable for transition to the Telemetry Unit. I will introduce empiric antifungal coverage started today, this is for a possible urinary tract infection secondary to yeast. Critical Care will follow for now. Job ID: [id number]
[2019-06-25] MEDS: Lidocaine 5% Patch TD SCH (14:52)
[2019-06-25 15:35] LABS: Reflex for Review? - EOS YES
--- NOTE | 2019-06-25 15:42 | PDOC.HOSPP ---
- Subjective Encounter Date: 06/25/19 Subjective: The patient has improved significantly since yesterday - Objective Vital Signs & Weight: Vital Signs (12 hours) Temp Pulse Pulse Pulse BP BP BP 06/25/19 13:10 99 97 145/76 H 134/74 06/25/19 12:00 98.9 F 06/25/19 09:17 90 166/87 H 06/25/19 08:00 06/25/19 07:38 90 06/25/19 07:00 98.3 F Pulse Ox Pulse Ox Pulse Ox 06/25/19 13:10 91 L 94 L 06/25/19 12:00 06/25/19 09:17 06/25/19 08:00 94 L 06/25/19 07:38 100 06/25/19 07:00 Weight Weight 118 lb 4 oz Most Recent Monitor Data Heart Rate from ECG 96 NIBP 135/74 NIBP BP-Mean 94 Respiration from ECG 16 SpO2 93 I&O: 06/24/19 06/25/19 06/26/19 06:59 06:59 06:59 Intake Total 4420 2770 Output Total 1200 2075 Balance 3220 695 Result Diagrams: 06/25/19 03:22 06/25/19 03:22 Additional Labs: Accuchecks 06/25/19 06/25/19 06/24/19 10:45 05:42 20:34 POC Glucose 254 H 173 H 229 H 06/24/19 16:23 POC Glucose 312 H Hospitalist ROS - Medication Medications: Active Medications Generic Name Dose Route Start Last Admin Trade Name Freq PRN Reason Stop Dose Admin Acetaminophen 650 mg 06/20/19 05:50 06/24/19 00:18 Tylenol PO 650 mg Q4H PRN Administration Headache/Fever/Mild Pain (1-3) Hydrocodone Bitart/Acetaminophen 1 tab 06/24/19 12:09 06/25/19 09:23 [place] 5/325 PO 1 tab Q4H PRN Administration Mild Pain (4-6) Hydrocodone Bitart/Acetaminophen 2 tab 06/24/19 12:10 06/25/19 13:55 [place] 5/325 PO 2 tab Q4H PRN Administration PAIN 7-10 Albuterol/Ipratropium 3 ml 06/24/19 00:14 06/24/19 00:31 Duoneb NEB 3 ml Q6H PRN Administration SOB &/or Wheezing Amlodipine Besylate 5 mg 06/21/19 09:00 06/25/19 09:17 Norvasc PO 5 mg DAILY DESTINY Administration Aspirin 81 mg 06/21/19 09:00 06/25/19 09:17 Ecotrin PO 81 mg DAILY DESTINY Administration Atorvastatin Calcium 40 mg 06/22/19 21:00 06/24/19 21:03 Lipitor PO 40 mg HS DESTINY Administration Bumetanide 1 mg 06/25/19 09:00 06/25/19 09:19 Bumex IVP 1 mg DAILY DESTINY Administration Diphenhydramine HCl 25 mg 06/21/19 09:10 06/21/19 20:59 Benadryl PO 25 mg Q3H PRN Administration Itching Heparin Sodium (Porcine) 5,000 units 06/24/19 21:00 06/25/19 09:18 Heparin SC 5,000 units BID DESTINY Administration Hydralazine HCl 10 mg 06/20/19 20:30 06/21/19 20:12 Apresoline SLOW IVP 10 mg Q4H PRN Administration SBP Greater Than 180 Meropenem 500 mg/ Sodium 100 mls @ 200 mls/hr 06/24/19 22:00 06/25/19 14:46 Chloride IVPB 100 mls Q8HR DESTINY Administration Insulin Human Lispro 0 units 06/20/19 20:28 06/25/19 11:01 Humalog SC 4 unit .MILD SLIDING SCALE PRN Administration Mild Correctional Scale Insulin Human Lispro 0 units 06/20/19 20:28 06/24/19 21:27 Humalog SC 2 unit .BEDTIME SLIDING SC PRN Administration Bedtime Correctional Scale Lidocaine 1 patch 06/25/19 16:00 06/25/19 14:52 Lidoderm 5% Patch TD 1 patch 1600 DESTIYN Administration Metoprolol Tartrate 12.5 mg 06/22/19 09:00 06/25/19 09:17 Lopressor PO 12.5 mg BID DESTINY Administration Miscellaneous Medication 1 each 06/25/19 04:00 06/25/19 04:58 Lidocaine Patch Removal TOP 1 each 0400 DESTINY Administration Sertraline HCl 50 mg 06/20/19 21:00 06/24/19 21:03 Zoloft PO 50 mg HS DESTINY Administration Sodium Chloride 10 ml 06/20/19 02:06 03/18/20 05:27 Flush - Normal Saline IVF 10 ml PRN PRN Administration Saline Flush Tramadol HCl 50 mg 06/24/19 12:12 06/24/19 18:42 Ultram PO 50 mg Q6H PRN Administration PAIN SCALE 1-5 Tramadol HCl 100 mg 06/24/19 12:12 06/25/19 10:59 Ultram PO 100 mg Q6H PRN Administration PAIN SCALE 6-10 - Exam General Appearance: awake alert ENT: normocephalic atraumatic Neck: supple, no JVD Heart: RRR, no murmur, no gallops, no rubs, normal peripheral pulses Respiratory: CTAB, no wheezes, no rales, no ronchi, normal chest expansion Gastrointestinal: soft, non-tender, non-distended, normal bowel sounds, no palpable masses Hosp A/P (1) 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 Code(s): L97.514 - NON-PRS CHRONIC ULCER OTH PRT RIGHT FOOT W NECROSIS OF BONE Status: Acute (2) PVD (peripheral vascular disease) Code(s): I73.9 - PERIPHERAL VASCULAR DISEASE, UNSPECIFIED Status: Acute (3) CKD (chronic kidney disease) stage 3, GFR 30-59 ml/min Code(s): N18.3 - CHRONIC KIDNEY DISEASE, STAGE 3 (MODERATE) Status: Acute (4) Uncontrolled pain Code(s): R52 - PAIN, UNSPECIFIED Status: Acute (5) Sepsis Code(s): A41.9 - SEPSIS, UNSPECIFIED ORGANISM Status: Acute Qualifiers: Sepsis type: Pseudomonas Qualified Code(s): A41.52 - Sepsis due to Pseudomonas (6) Pulmonary edema Code(s): J81.1 - CHRONIC PULMONARY EDEMA Status: Acute - Plan 06/20: S/P R BKA Pain is uncontrolled Crying from pain on Fentanyl BASTING CLEANER Give one dose of morphine 7mg and start gabapentin 300 mg daily Foot culture showing psudomonas. Awaiting final cultre and sensitivity data. Sepsis POA Start Zosyn 06/21: Her pain is better controlled on Dilaudid BASTING CLEANER. Continue IV Zosyn for pseudomonas. Check hemoglobin tomorrow and transfuse as needed for level below 7. 06/22: Hb level dropped less than 7 Transfuse 2 units of PRBCs Continue Antibiotics BASTING CLEANER management per anesthesiology 06/23: The patient was seen and examined this morning. She was in state of respiratory distress. Her chest x-ray revealed pulmonary edema. Lasix was given and the patient was transitioned to ICU on BiPAP. 06/24: The patient diuresed well Hypoxia improving Continue IV bumex Continue antibiotics and antifungals
[2019-06-25 18:29] LABS: Critical Call Chem Troponin I RESULT DECREASING; Troponin I 0.373 ng/mL (< 0.028)
[2019-06-25] MEDS: Atorvastatin Calcium 40 MG TAB PO SCH (20:42)
[2019-06-25] MEDS: Insulin Glargine 5 UNITS in Pre-Filled Syringe 1 EACH SC SCH (20:43)
[2019-06-26] MEDS: Meropenem 500 MG in Sodium Chloride 0.9% 100 ML IVPB SCH ×3 (05:10→21:08)
[2019-06-26] MEDS: Lidocaine Patch Removal 1 EACH TOP SCH (05:10)
[2019-06-26 05:15] LABS: Anion Gap 13 mmol/L (10-20); BUN (Urea Nitrogen) 37 mg/dL (9.8-20.1); Calc. Creatinine Clearance 11 mL/min (70-130); Calcium 7.7 mg/dL (7.8-10.44); Carbon Dioxide 23 mmol/L (23-31); Chloride 101 mmol/L (98-107); Estimated GFR-MDRD 12; Glucose 203 mg/dL (83-110); Potassium 3.4 mmol/L (3.5-5.1); Sodium 134 mmol/L (136-145)
[2019-06-26 05:21] LABS: Critical Call Chem Troponin I RESULT DECREASING; Troponin I 0.356 ng/mL (< 0.028)
[2019-06-26 05:49] LABS: Band 11 % (5-11); Eosinophils 2 % (0-10); Hemoglobin 8.6 g/dL (12.0-16.0); Lymphocytes 8 % (21-51); MDiff Complete? YES; Mean Corpuscular HGB CONC 33.5 g/dL (32.0-36.0); Mean Corpuscular Hemoglobin 29.5 pg (27.0-31.0); Mean Corpuscular Volume 88.2 fL (78.0-98.0); Mean Platelet Volume 7.7 fL (7.4-10.4); Monocytes 6 % (0-10); Neutrophil 73 % (42-75); Platelet Count 420 thou/uL (130-400); RBC Distribution Width 13.2 % (11.5-14.5); Red Blood Cell (RBC) Count 2.92 mill/uL (4.20-5.40); White Blood Cell (WBC) Count 20.4 thou/uL (4.8-10.8)
[2019-06-26] MEDS: Heparin 5,000 UNITS/ML VIAL SC SCH ×2 (08:22→20:19)
[2019-06-26] MEDS: HYDROcodone/Acetaminophen 5/325 mg Tablet PO PRN ×2 (08:23→20:20)
[2019-06-26] MEDS: Amlodipine 5 MG TAB PO SCH (08:24)
[2019-06-26] MEDS: Metoprolol Tartrate 25 MG TAB PO SCH ×2 (08:24→20:18)
[2019-06-26] MEDS: Aspirin 81 mg Enteric Coated Tablet PO SCH (08:24)
[2019-06-26] MEDS: Fluconazole 100 MG TAB PO SCH (08:24)
[2019-06-26] MEDS: HumaLOG 300 UNITS/3 ML VIAL SC PRN ×4 (08:25→22:02)
[2019-06-26] MEDS: Bumetanide 1 MG/4 ML VIAL IVP SCH (08:25)
[2019-06-26] MEDS: Insulin Glargine 5 UNITS in Pre-Filled Syringe 1 EACH SC SCH ×2 (08:36→20:20)
--- NOTE | 2019-06-26 09:51 | PRG ---
DATE OF SERVICE: 06/26/2019 SERVICE: Pulmonary Medicine. INTERVAL HISTORY: The patient is doing great from respiratory standpoint. She denies having any shortness of breath or chest discomfort. Otherwise, there has been no change to her condition. Nursing reports no overnight events. PHYSICAL EXAMINATION: VITAL SIGNS: Afebrile with a T-max of 99.8, pulse 98, blood pressure 167/84, respirations 21, saturation 94% on 2 L nasal cannula. GENERAL: The patient is awake and alert, in no apparent distress. LUNGS: Good air entry bilaterally. There is no prolonged expiratory phase. Crackles are present. No wheezing. HEART: Normal rate regular. ABDOMEN: Soft, nontender, nondistended, bowel sounds are positive. MUSCULOSKELETAL: No cyanosis or clubbing. No pitting in the bilateral lower extremities. NEUROLOGIC: Grossly nonfocal. LABORATORY DATA: WBC 20.4, hemoglobin 8.6, platelets 420,000, and rebounding nicely. Lymphocytes are up trending, monocytes are stable. Band count is 11% on top of 73% neutrophils. Creatinine is downtrending to 3.72, BUN 37. Potassium 3.4, calcium 7.7. Troponin is downtrending to 0.356. Pseudomonas was growing in the toe that was amputated. Blood cultures x4, are unremarkable. Urine is growing Patricia albicans. ASSESSMENT: 1. Acute hypoxic respiratory failure, resolved. 2. Acute kidney injury on chronic kidney disease 3, possibly acute tubular necrosis, improving. 3. Soft tissue infection, status post below-knee amputation on the right. 4. Systemic inflammatory response syndrome, improving. 5. Urinary tract infection secondary to Patricia albicans (versus colonization). DISCUSSION AND PLAN: Because the patient is a diabetic, I have elected to go ahead and treat her fungal UTI. The patient has made a dramatic improvement from a respiratory standpoint. At this point, she has no further requirements for inpatient Pulmonary or Critical Care opinion, and I will sign off. She will need a chest x-ray in 2 to 4 weeks in the outpatient setting. I will once again give her dose of potassium while we continue to diurese her through time as she remains at touch volume up given her JVD. Job ID: [id number]
[2019-06-26] MEDS ORDERED: Potassium Chloride 20 MEQ TAB PO SCH (10:00)
--- NOTE | 2019-06-26 10:10 | PRG ---
DATE OF SERVICE: 06/26/2019 SUBJECTIVE: Ms. Wagner is a 74-year-old female with chronic renal failure, who was seen for a superimposed acute kidney injury. Empirically treated as volume depletion, but did not tolerate volume. Renal function still remains relatively stable with a creatinine of 3.72, which is slightly improved from yesterday's value of 3.97. She continues to be on diuresis for her CHF. Possibility of a superimposed ATN remains with this patient. Cardiac echo has been ordered. In addition, Cardiology has been consulted. She did have some elevated troponin I, which has picked down. She may have developed NSTEMI. Other possibilities could be just stress-induced ischemia when she had the CHF. No other complaints. She is feeling better. She is less confused. OBJECTIVE: VITAL SIGNS: Blood pressure is 167/84, heart rate 91, temperature 99.8, respiratory rate 21. GENERAL: The patient is awake, alert, comfortable, not in distress. SKIN: Adequate turgor. HEENT: She has slightly pale conjunctivae. Anicteric sclerae. NECK: No neck mass. No carotid bruits. No JVD. CHEST: No deformities. LUNGS: Decreased breath sounds. HEART: Normal sinus rhythm. No murmur. No gallops. No rubs. ABDOMEN: Globular, soft, and nontender. No masses. EXTREMITIES: Status post bilateral BKA. MEDICATIONS: Medications of June 26, 2019, were reviewed. LABORATORY DATA: Laboratories of June 26, 2019: White count 20.4, hemoglobin 8.6. Sodium 136, potassium 3.2, chloride 102, carbon dioxide 20, BUN 33, creatinine 3.97. This read was on June 25, 2019. Laboratories of June 26, 2019: Sodium 134, potassium 3.4, chloride 101, carbon dioxide 23, BUN 37, creatinine 3.72, GFR 12 mL/minute, glucose 203, calcium 7.7. Troponin I of 0.356. ASSESSMENT AND PLAN: 1. Leukocytosis/status post gangrenous right foot - the patient was converted to IV meropenem. ID following. 2. Congestive heart failure, clinically much improved. Currently, on a diuretic regimen. 3. Acute kidney injury/chronic renal failure - superimposed hemodynamically-mediated dysfunction. Possibility of a superimposed acute tubular necrosis also remains. Continue supportive care. Continue current diuretic regimen. There is no indication for any dialytic intervention. 4. Anemia. Continue to observe. P.r.n. blood transfusion. 5. Recheck CBC and basic metabolic panel in a.[facility]. Job ID: [id number]
[2019-06-26] MEDS: Lidocaine 5% Patch TD SCH (17:23)
[2019-06-26] MEDS: Atorvastatin Calcium 40 MG TAB PO SCH (20:18)
--- NOTE | 2019-06-26 22:23 | PDOC.HOSPP ---
- Subjective Encounter Date: 06/26/19 Encounter Time: 11:00 - Objective Vital Signs & Weight: Vital Signs (12 hours) Temp Pulse Resp BP Pulse Ox 06/26/19 15:46 98.0 F 93 16 148/77 H 93 L 06/26/19 11:47 99.3 F 84 12 152/70 H 93 L Weight Weight 130 lb 1.6 oz Most Recent Monitor Data Heart Rate from ECG 90 NIBP 149/85 NIBP BP-Mean 106 Respiration from ECG 19 SpO2 100 I&O: 06/25/19 06/26/19 06/27/19 06:59 06:59 06:59 Intake Total 2770 570 480 Output Total 1783 0203 7207 Balance 170 -6941 -357 Result Diagrams: 06/26/19 04:30 06/26/19 04:30 Additional Labs: Accuchecks 06/26/19 06/26/19 06/26/19 21:14 16:45 10:38 POC Glucose 315 H 281 H 284 H 06/26/19 06/25/19 05:58 16:08 POC Glucose 224 H 319 H Hospitalist ROS - Medication Medications: Active Medications Generic Name Dose Route Start Last Admin Trade Name Freq PRN Reason Stop Dose Admin Acetaminophen 650 mg 06/20/19 05:50 06/24/19 00:18 Tylenol PO 650 mg Q4H PRN Administration Headache/Fever/Mild Pain (1-3) Hydrocodone Bitart/Acetaminophen 1 tab 06/24/19 12:09 06/25/19 21:26 [place] 5/325 PO 1 tab Q4H PRN Administration Mild Pain (4-6) Hydrocodone Bitart/Acetaminophen 2 tab 06/24/19 12:10 06/26/19 20:20 [place] 5/325 PO 2 tab Q4H PRN Administration PAIN 7-10 Albuterol/Ipratropium 3 ml 06/24/19 00:14 06/24/19 00:31 Duoneb NEB 3 ml Q6H PRN Administration SOB &/or Wheezing Amlodipine Besylate 5 mg 06/21/19 09:00 06/26/19 08:24 Norvasc PO 5 mg DAILY DESTINY Administration Aspirin 81 mg 06/21/19 09:00 06/26/19 08:24 Ecotrin PO 81 mg DAILY DESTINY Administration Atorvastatin Calcium 40 mg 06/22/19 21:00 06/26/19 20:18 Lipitor PO 40 mg HS DESTINY Administration Bumetanide 1 mg 06/25/19 09:00 06/26/19 08:25 Bumex IVP 1 mg DAILY DESTINY Administration Diphenhydramine HCl 25 mg 06/21/19 09:10 06/21/19 20:59 Benadryl PO 25 mg Q3H PRN Administration Itching Fluconazole 100 mg 06/26/19 09:00 06/26/19 08:24 Diflucan PO 07/02/19 09:01 100 mg DAILY DESTINY Administration Heparin Sodium (Porcine) 5,000 units 06/24/19 21:00 06/26/19 20:19 Heparin SC 5,000 units BID DESTINY Administration Hydralazine HCl 10 mg 06/20/19 20:30 06/21/19 20:12 Apresoline SLOW IVP 10 mg Q4H PRN Administration SBP Greater Than 180 Meropenem 500 mg/ Sodium 100 mls @ 200 mls/hr 06/24/19 22:00 06/26/19 21:08 Chloride IVPB 100 mls Q8HR DESTINY Administration Insulin Glargine 5 units/ 0.05 mls @ 0 mls/hr 06/26/19 09:00 06/26/19 08:36 Miscellaneous Medication SC 0.05 mls QAM DESTINY Administration Insulin Glargine 5 units/ 0.05 mls @ 0 mls/hr 06/25/19 21:00 06/26/19 20:20 Miscellaneous Medication SC 0.05 mls HS DESTINY Administration Insulin Human Lispro 0 units 06/20/19 20:28 06/26/19 18:09 Humalog SC 4 unit .MILD SLIDING SCALE PRN Administration Mild Correctional Scale Insulin Human Lispro 0 units 06/20/19 20:28 06/26/19 22:02 Humalog SC 4 unit .BEDTIME SLIDING SC PRN Administration Bedtime Correctional Scale Lidocaine 1 patch 06/25/19 16:00 06/26/19 17:23 Lidoderm 5% Patch TD 1 patch 1600 DESTINY Administration Metoprolol Tartrate 12.5 mg 06/22/19 09:00 06/26/19 20:18 Lopressor PO 12.5 mg BID DESTINY Administration Miscellaneous Medication 1 each 06/25/19 04:00 06/26/19 05:10 Lidocaine Patch Removal TOP Not Given 0400 DESTINY Sertraline HCl 50 mg 06/20/19 21:00 06/26/19 20:19 Zoloft PO 50 mg HS DESTINY Administration Sodium Chloride 10 ml 06/20/19 02:06 06/26/19 05:11 Flush - Normal Saline IVF 10 ml PRN PRN Administration Saline Flush Tramadol HCl 50 mg 06/24/19 12:12 06/24/19 18:42 Ultram PO 50 mg Q6H PRN Administration PAIN SCALE 1-5 Tramadol HCl 100 mg 06/24/19 12:12 06/25/19 10:59 Ultram PO 100 mg Q6H PRN Administration PAIN SCALE 6-10 - Exam General Appearance: awake alert Eye: PERRL ENT: normocephalic atraumatic Neck: supple Heart: RRR, no murmur, no gallops, no rubs, normal peripheral pulses Respiratory: CTAB, no wheezes, no rales, no ronchi, normal chest expansion Hosp A/P (1) 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 Code(s): L97.514 - NON-PRS CHRONIC ULCER OTH PRT RIGHT FOOT W NECROSIS OF BONE Status: Acute (2) PVD (peripheral vascular disease) Code(s): I73.9 - PERIPHERAL VASCULAR DISEASE, UNSPECIFIED Status: Acute (3) CKD (chronic kidney disease) stage 3, GFR 30-59 ml/min Code(s): N18.3 - CHRONIC KIDNEY DISEASE, STAGE 3 (MODERATE) Status: Acute (4) Uncontrolled pain Code(s): R52 - PAIN, UNSPECIFIED Status: Acute (5) Sepsis Code(s): A41.9 - SEPSIS, UNSPECIFIED ORGANISM Status: Acute Qualifiers: Sepsis type: Pseudomonas Qualified Code(s): A41.52 - Sepsis due to Pseudomonas (6) Pulmonary edema Code(s): J81.1 - CHRONIC PULMONARY EDEMA Status: Acute (7) Elevated troponin Code(s): R79.89 - OTHER SPECIFIED ABNORMAL FINDINGS OF BLOOD CHEMISTRY Status : Acute - Plan 06/20: S/P R BKA Pain is uncontrolled Crying from pain on Fentanyl [employer]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 Awaiting final cultre and sensitivity data. Sepsis POA Start Zosyn 06/21: Her pain is better controlled on Dilaudid [employer]. Continue IV Zosyn for pseudomonas. Check hemoglobin tomorrow and transfuse as needed for level below 7. 06/22: Hb level dropped less than 7 Transfuse 2 units of PRBCs Continue Antibiotics W[employer]OW INSTALLER management per anesthesiology 06/23: The patient was seen and examined this morning. She was in state of respiratory distress. Her chest x-ray revealed pulmonary edema. Lasix was given and the patient was transitioned to ICU on BiPAP. 06/24: The patient diuresed well Hypoxia improving Continue IV bumex Continue antibiotics and antifungals 06/25: The patient's respiratory status has improved. Leukocytosis slightly improving. Continue current antimicrobial regimen. Continue diuresis. Troponin level plateaued and trending down. This could be due to supply/demand mismatch. Awaiting cardiology recommendations.
[2019-06-27 04:51] LABS: Eosinophils 2 % (0-10); Hemoglobin 8.9 g/dL (12.0-16.0); Hypochromia SLIGHT = 6-15 cells (100X) (0-5/hpf); Lymphocytes 6 % (21-51); MDiff Complete? YES; Mean Corpuscular HGB CONC 30.9 g/dL (32.0-36.0); Mean Corpuscular Hemoglobin 27.4 pg (27.0-31.0); Mean Corpuscular Volume 88.7 fL (78.0-98.0); Mean Platelet Volume 7.6 fL (7.4-10.4); Monocytes 5 % (0-10); Neutrophil 87 % (42-75); Platelet Count 464 thou/uL (130-400); Platelet Morphology Comment Appears Increased; RBC Distribution Width 13.2 % (11.5-14.5); Red Blood Cell (RBC) Count 3.23 mill/uL (4.20-5.40); White Blood Cell (WBC) Count 20.4 thou/uL (4.8-10.8)
[2019-06-27] MEDS: Lidocaine Patch Removal 1 EACH TOP SCH (04:55)
[2019-06-27] MEDS: Meropenem 500 MG in Sodium Chloride 0.9% 100 ML IVPB SCH ×2 (05:05→14:38)
[2019-06-27 05:07] LABS: Anion Gap 13 mmol/L (10-20); BUN (Urea Nitrogen) 37 mg/dL (9.8-20.1); Calc. Creatinine Clearance 14 mL/min (70-130); Carbon Dioxide 25 mmol/L (23-31); Chloride 102 mmol/L (98-107); Estimated GFR-MDRD 14; Glucose 183 mg/dL (83-110); Magnesium 1.1 mg/dL (1.6-2.6); Potassium 3.8 mmol/L (3.5-5.1); Sodium 136 mmol/L (136-145)
--- NOTE | 2019-06-27 07:02 | CON ---
DATE OF CONSULTATION: 06/26/2019 REASON FOR CONSULTATION: Positive troponins. HISTORY OF PRESENT ILLNESS: Ms. Wagner is a pleasant 74-year-old female, who comes to the hospital for right toe pain. She was diagnosed with gangrene of the toe and had to go BKA. 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 The BKA this time was on the right side. She has a pre-existing left-sided BKA. During her admission, her troponin was monitored a few times and she went from 0.2, 0.2, 0.2 on the and on the it was rechecked and it was 0.8, and then 0.3 and 0.3, so Cardiology has been consulted for this. Of note, Ms. Wagner had a hemoglobin of 6 on 06/23, the night before the troponin bumped. She was transfused and her hemoglobin is better now and more stable about 9.0. She denies any chest pain, tightness, pressure during this admission. She tells me that in the last few weeks before she had to come in, she would do any level of exertion and she would feel the chest burning that would only go away when she would stop exercising. She has never had an evaluation of her heart. PAST MEDICAL HISTORY: 1. Type 2 diabetes. 2. Chronic kidney disease, stage 4. 3. Hyperlipidemia. 4. Hypertension. 5. Peripheral vascular disease. SURGICAL HISTORY: 1. Left krmbb-uvq-[id number] amputation in the past. 2. Right ghbpd-iim-ramg amputation during this admission. 3. Hysterectomy. 4. Cholecystectomy. 5. Cataract surgery. ALLERGIES: NO KNOWN DRUG ALLERGIES. OUTPATIENT MEDICATIONS: 1. Amlodipine 5 mg a day. 2. Enalapril 5 mg a day. 3. Levemir insulin. 4. NovoLog Mix 70/30. 5. Glipizide 2 tablets daily. 6. Sertraline. 7. Aspirin 81 a day. ALLERGIES: NO KNOWN DRUG ALLERGIES. REVIEW OF SYSTEMS: A 12-point review of systems was done and was all negative unless in the history of present illness. PHYSICAL EXAMINATION: VITAL SIGNS: Temperature 98.0, pulse 92, respiratory rate 16 saturating 93% on 1 L nasal cannula. GENERAL: Awake, alert, and oriented x3. No distress. HEENT: Normocephalic and atraumatic. NECK: Supple. LUNGS: Clear. CARDIOVASCULAR: S1 and S2. No S3 or S4. Occasional PVC/PAC. Grade 2/6 systolic murmur at the right upper sternal border. ABDOMEN: Soft. EXTREMITIES: Bilateral BKAs, gauze on the right leg. LABORATORY DATA: Laboratory work was reviewed. White count of 17 on arrival, up to 23 yesterday. Hemoglobin is 7.9 on arrival, down to 6.8 on the 16th, up to 9.0 on the 18th. Platelet count, normal. Chemistry with a sodium of 134, potassium is 3.4, BUN of 37 and creatinine is 3.72, and this is higher than when she came. She came in at 1.89, came down to 1.3 and has been steadily coming up at 2.3, then 3.3, 3.9, and is still slightly coming down at 3.7 now. GFR is 12. Troponin was 0.2 x3 on admission and then three days later at 0.8, and then 0.3 and 0.3. UA was reviewed. ASSESSMENT AND PLAN: 1. [id number] myocardial infarction. Likely type 2 demand type of ischemia given her low hemoglobin and her septic-type picture. 2. Coronary artery disease, most likely she has all the risk factors and a severe peripheral vascular disease. Most likely, she also has some level of coronary artery disease that has been undiagnosed. 3. Status post txado-fwx-coja amputation. PLAN: 1. I doubt that this is an acute coronary syndrome. This is most likely demand ischemia from her low anemia in her septic-type picture. Currently, she is asymptomatic. 2. She will need further risk stratification if she ever has to undergo dialysis. At this time, her creatinine is too high to do a heart catheterization. If she has unstable rhythms versus worsening cardiomyopathy or an ST-elevation CO, this is a situation where she would require an emergent heart catheterization but not at this time. She is not interested in doing anything that would risk for going on dialysis. Would start therapies assuming she has an ischemic cardiomyopathy with statin, aspirin, make sure she is on a beta-charlotte and MIKEY inhibitor. 3. We will get an echocardiogram. 4. Would not do a stress test at this time given that the results are not going to change our management. 5. Thank you for letting us participate in the care of your patient. Awaiting echo results. Job ID: [id number]
--- NOTE | 2019-06-27 08:02 | PRG ---
DATE OF SERVICE: 06/26/2019 Pt eating dinner, still a little bit winded, no chest pain. No abdominal pain. Voiding with an indwelling catheter. BP 140/70. Awake, chronically ill-appearing, mildly tachypneic, crackles particularly at the bases. S1 and S2 are regular rate. Abdomen is soft and not distended or tender. LABORATORY DATA: White cell count 20.4, hemoglobin 8.6, platelets 420, with normal differential. Creatinine is 3.72 which is a little better than previously. Procalcitonin 0.36 cbc with unremarkable findings. Blood cultures negative. Patricia albicans in the urine, is probably not a meaningful. Echocardiogram, EF estimated at 60% to 65%, grade 1/3 diastolic dysfunction. No other significant findings. ASSESSMENT AND DISCUSSION: Fever, neutrophilia, pulmonary edema, Pseudomonas aeruginosa isolated from the toe. Neutrophilia most likely from pulmonary edema associated with renal insuficiency, acute on chronic, and I believe we can stop her antimicrobials at this point. She is status post amputation at BKA level and revision of site with flap is scheduled. Job ID: [id number] MTDD
[2019-06-27] MEDS: Aspirin 81 mg Enteric Coated Tablet PO SCH (09:14)
[2019-06-27] MEDS: Bumetanide 1 MG/4 ML VIAL IVP SCH (09:14)
[2019-06-27] MEDS: Amlodipine 5 MG TAB PO SCH (09:14)
[2019-06-27] MEDS: Heparin 5,000 UNITS/ML VIAL SC SCH (09:15)
[2019-06-27] MEDS: Insulin Glargine 5 UNITS in Pre-Filled Syringe 1 EACH SC SCH (09:15)
[2019-06-27] MEDS: Metoprolol Tartrate 25 MG TAB PO SCH (09:15)
[2019-06-27] MEDS: Fluconazole 100 MG TAB PO SCH (09:15)
[2019-06-27] MEDS: HYDROcodone/Acetaminophen 5/325 mg Tablet PO PRN ×2 (09:16→15:33)
--- NOTE | 2019-06-27 09:27 | PRG ---
DATE OF SERVICE: 06/27/2019 SUBJECTIVE: Ms. Wagner is a 74-year-old female, who was seen for an acute kidney injury on top of her chronic renal failure. She was initially attempted on volume repletion, but did not tolerate this and went to CHF. The patient has also a mildly elevated troponin I and this could have been related from stress-induced cardiac ischemia. A cardiac echo has been done, which showed EF of 60% to 65%, but has a grade 1/3 diastolic dysfunction. She is currently on diuretics and tolerating said treatment. No chest pain or shortness of breath today. OBJECTIVE: VITAL SIGNS: Blood pressure is noted at 179/84, heart rate 95, respiratory rate 14, temperature 98.7, and pulse ox 97%. GENERAL: The patient is awake, alert, comfortable, not in overt distress. SKIN: Adequate turgor. HEENT: She has pinkish conjunctivae. Anicteric sclerae. NECK: No neck mass. No carotid bruits. No JVD. CHEST: No deformities. LUNGS: Clear breath sounds. HEART: Normal sinus rhythm. No murmur. No gallops. No rubs. ABDOMEN: Globular, soft, and nontender. No masses. EXTREMITIES: No edema. No deformities. MEDICATIONS: Medications of June 27, 2019, were reviewed. LABORATORY DATA: Laboratories of June 27, 2019; white count 20.4, hemoglobin 8.9. Sodium 136, potassium 3.8, chloride 102, carbon dioxide 25, BUN 37, creatinine 3.13, magnesium 1.1, and calcium is 8.0. ASSESSMENT AND PLAN: 1. Acute kidney injury on top of her chronic renal failure, superimposed hemodynamically-mediated renal dysfunction. This could have been related from her diastolic dysfunction. Although, a mild acute tubular necrosis could not be completely ruled out. Continue supportive care. Continue gentle use of diuretics. No indication for any dialytic intervention. 2. Hypomagnesemia. P.r.n. magnesium replacement. 3. Anemia. The patient is status post blood transfusion. The plan is to start the patient on an Epogen regimen as well as on iron supplementation. 4. Congestive heart failure secondary to diastolic dysfunction. Clinically improving. Cardiology has been consulted. 5. In addition, we will be starting the patient on beta-charlotte, Lopressor 25 mg tablet p.o. b.i.d. 6. Leukocytosis/status post right gangrenous foot - on IV meropenem. ID following. Agree with current management. Recheck CBC and basic metabolic panel in a.m. Job ID: [id number]
[2019-06-27] MEDS ORDERED: EPOETIN ALFA-EPBX (ESRD) 4,000 UNIT/ML VIAL SC SCH (09:30)
[2019-06-27] MEDS ORDERED: traMADol HCl 50 MG TAB PO PRN ×2 (11:30)
[2019-06-27] MEDS: HumaLOG 300 UNITS/3 ML VIAL SC PRN ×2 (11:48→16:50)
--- NOTE | 2019-06-27 14:02 | PDOC.CPN ---
- Subjective Date: 06/27/19 Time: 14:00 Interval history: No new issues. No angina, no SOB. - Review of Systems General: denies: fever/chills, weight/appetite/sleep changes, night sweats, fatigue Respiratory: denies: cough, congestion, shortness of breath, exercise intolerance Cardiovascular: denies: chest pain, palpitation, edema, paroxysmal nocturnal dyspnea, orthopnea Gastrointestinal: denies: nausea, vomiting, diarrhea, constipation, abd pain, GI bleeding Musculoskeletal: denies: pain, tenderness, stiffness, swelling, arthritis/ arthralgias Neurological: denies: numbness, syncope, seizure, weakness - Objective Allergies/Adverse Reactions: Allergies Allergy/AdvReac Type Severity Reaction Status Date / Time No Known Drug Allergies Allergy Verified 10/05/17 23:14 Visit Medications: Current Medications Acetaminophen (Tylenol) 650 mg PO Q4H PRN PRN Reason: Headache/Fever/Mild Pain (1-3) Last Admin: 06/24/19 00:18 Dose: 650 mg Hydrocodone Bitart/Acetaminophen ([place] 5/325) 1 tab PO Q4H PRN PRN Reason: Mild Pain (4-6) Last Admin: 06/25/19 21:26 Dose: 1 tab Hydrocodone Bitart/Acetaminophen ([place] 5/325) 2 tab PO Q4H PRN PRN Reason: PAIN 7-10 Last Admin: 06/27/19 09:16 Dose: 2 tab Albuterol/Ipratropium (Duoneb) 3 ml NEB Q6H PRN PRN Reason: SOB &/or Wheezing Last Admin: 06/24/19 00:31 Dose: 3 ml Amlodipine Besylate (Norvasc) 5 mg PO DAILY [facility] Last Admin: 06/27/19 09:14 Dose: 5 mg Aspirin (Ecotrin) 81 mg PO DAILY [facility] Last Admin: 06/27/19 09:14 Dose: 81 mg Atorvastatin Calcium (Lipitor) 40 mg PO HS [facility] Last Admin: 06/26/19 20:18 Dose: 40 mg Bumetanide (Bumex) 1 mg IVP DAILY [facility] Last Admin: 06/27/19 09:14 Dose: 1 mg Dextrose/Water (Dextrose 50%) 25 gm SLOW IVP PRN PRN PRN Reason: Hypoglycemia Diphenhydramine HCl (Benadryl) 25 mg IM/IV Q3H PRN PRN Reason: Itching Diphenhydramine HCl (Benadryl) 25 mg PO Q3H PRN PRN Reason: Itching Last Admin: 06/21/19 20:59 Dose: 25 mg Epoetin Paul-epbx (Retacrit) 7,500 unit SC Q7D [facility] Last Admin: 06/27/19 11:23 Dose: 7,500 unit Ferrous Sulfate (Feosol) 325 mg PO BID[facility] Fluconazole (Diflucan) 100 mg PO DAILY [facility] Stop: 07/02/19 09:01 Last Admin: 06/27/19 09:15 Dose: 100 mg Glucagon (Glucagon) 1 mg IM PRN PRN PRN Reason: Hypoglycemia Heparin Sodium (Porcine) (Heparin) 5,000 units SC BID [facility] Last Admin: 06/27/19 09:15 Dose: 5,000 units Hydralazine HCl (Apresoline) 10 mg SLOW IVP Q4H PRN PRN Reason: SBP Greater Than 180 Last Admin: 06/21/19 20:12 Dose: 10 mg Dextrose/Water (D5w) 1,000 mls @ 0 mls/hr IV .Q0M PRN PRN Reason: Hypoglycemia Meropenem 500 mg/ Sodium (Chloride) 100 mls @ 200 mls/hr IVPB Q8HR [facility] Last Admin: 06/27/19 05:05 Dose: 100 mls Insulin Glargine 5 units/ (Miscellaneous Medication) 0.05 mls @ 0 mls/hr SC QAM [facility] Last Admin: 06/27/19 09:15 Dose: 0.05 mls Insulin Glargine 5 units/ (Miscellaneous Medication) 0.05 mls @ 0 mls/hr SC HS [facility] Last Admin: 06/26/19 20:20 Dose: 0.05 mls Insulin Human Lispro (Humalog) 0 units SC .MILD SLIDING SCALE PRN PRN Reason: Mild Correctional Scale Last Admin: 06/27/19 11:48 Dose: 4 unit Insulin Human Lispro (Humalog) 0 units SC .BEDTIME SLIDING SC PRN PRN Reason: Bedtime Correctional Scale Last Admin: 06/26/19 22:02 Dose: 4 unit Lidocaine (Lidoderm 5% Patch) 1 patch TD 1600 [facility] Last Admin: 06/26/19 17:23 Dose: 1 patch Metoprolol Tartrate (Lopressor) 25 mg PO BID [facility] Miscellaneous Medication (Lidocaine Patch Removal) 1 each TOP 0400 [facility] Last Admin: 06/27/19 04:55 Dose: Not Given Naloxone HCl (Narcan) 0.2 mg IV Q5MIN PRN PRN Reason: Opiate Reversal Nitroglycerin (Nitrostat) 0.4 mg SL Q5MIN PRN PRN Reason: Chest Pain Ondansetron HCl (Zofran) 4 mg IVP Q6H PRN PRN Reason: Nausea/Vomiting Promethazine HCl (Phenergan) 12.5 mg IM Q4H PRN PRN Reason: Nausea/Vomiting Sertraline HCl (Zoloft) 50 mg PO [facility] Last Admin: 06/26/19 20:19 Dose: 50 mg Sodium Chloride (Flush - Normal Saline) 10 ml IVF PRN PRN PRN Reason: Saline Flush Last Admin: 06/27/19 05:06 Dose: 10 ml Tramadol HCl (Ultram) 50 mg PO Q12H PRN PRN Reason: PAIN SCALE 1-5 Tramadol HCl (Ultram) 100 mg PO Q12H PRN PRN Reason: PAIN SCALE 6-10 Last Admin: 06/27/19 12:00 Dose: 100 mg Zolpidem Tartrate (Ambien) 5 mg PO HSPRN PRN PRN Reason: Insomnia Vital Signs & Weight: Vital Signs Temp Pulse Resp BP Pulse Ox 06/27/19 11:20 98.0 F 80 17 150/71 H 100 06/27/19 07:40 98.7 F 95 14 179/84 H 97 06/27/19 04:20 97.9 F 94 18 173/80 H 91 L Weight 130 lb 8 oz - Physical Exam General: alert & oriented x3 HEENT: mucus membranes moist Neck: supple neck Cardiac: regular rate and rhythm Lungs: normal breath sounds Neuro: grossly intact Abdomen: active bowel sounds Extremities: other: (Bilat BKA) Skin: clear Musculoskeletal: no pain - Labs Result Diagrams: 06/27/19 04:15 06/27/19 04:15 Troponin/CKMB CK-MB (CK-2) 2.8 ng/mL (0-6.6) 06/25/19 03:22 Troponin I 0.356 ng/mL (< 0.028) H* 03/19/20 04:30 - Telemetry Sinus rhythms and dysrhythmias: sinus rhythm - Assessment/Plan Assessment/Plan: 1. NSTEMI 2. PVD s/p gangrene of foot and subsequent amputation. 3. Severe anemia 4. CKD stage 4. 5. Normal EF at 60-65% PLAN: - ASA/Statin/BB assuming CAD - No ACEI given CKD and risk for hyperkalemia - Wound care. - CV stable. - May d/c anytime from cardiac perspective. - Will follow up in office in 1-2 months. - Will sign off. Please call with any questions.
--- NOTE | 2019-06-27 15:19 | PDOC.BPN ---
- Brief Progress Note The patient requires a Wheelchair for mobility at home since she is now s/p bilateral BKAs.
[2019-06-27] MEDS: Lidocaine 5% Patch TD SCH (15:28)
[2019-06-27 15:42] VITALS: BP 160/76; TEMP 98.8
[2019-06-27] MEDS ORDERED: Ferrous Sulfate 325 MG TAB PO SCH (17:00)
[2019-06-27] MEDS ORDERED: Metoprolol Tartrate 25 MG TAB PO SCH (21:00)
--- NOTE | 2019-06-29 22:55 | PQF ---
CORONADOVEENA ORTEGARAKESH ARREGUIN [id number] SURG A- [id number] CLINICAL DOCUMENTATION CLARIFICATION FORM: POST DISCHARGE Addendum to original discharge summary date: ____ Late entry note date: __ DATE: 06/29/2019 ATTN: RAKESH CASTANO Please exercise your independent, professional judgment in responding to the clarification form. Clinical indicators are provided on the bottom of this form for your review Please check appropriate box(s): Conflicting documentation was noted in the Medical Record, please clarify if patient is being treated/monitored for: [ >] Sepsis [ ] Systemic inflammatory response syndrome [ ] Other diagnosis [ ] Unable to determine For continuity of documentation, please document condition throughout progress notes and discharge summary. Thank You. CLINICAL INDICATORS - SIGNS / SYMPTOMS/ LABS Systemic inflammatory response syndrome improving -Documented in PN on 06/24 by Cristian Hanson MD Soft tissue infection , status post below -knee amputation on the right - Documented in PN on 06/24 by Cristian Hanson MD Sepsis POA -Documented in hospitalist progress note on 06/25 by Alnazeer. Campos Foot culture showing pseudomonas . Awiting final culture and sensitivity data- Documented in hospitalist progress note on 06/25 by Alnazeer. Campos Gangrena right foot -Documented in Op note 06/19 by All Romo MD [employer] Sepsis POA -Documented in hospitalist progress note on 06/25 by Alnazeer. Campos Foot culture showing pseudomonas . Awiting final culture and sensitivity data- Documented in hospitalist progress note on 06/25 by Alnazeer. Campos TREATMENT Continue IV Zosyn for pseudomonas-Documented in hospitalist progress note on by Alnazeer. Campos (This form is maintained as a part of the permanent medical record) [id number]. All Rights Reserved [email or web address] [phone] [email or web address]
== END 2019-06-27 18:25 | disposition home health service (06) | DRG 853 ==
LOC: ERS 18:43 → SURG A 06-20 00:37 → IMCU/EMU 06-24 13:21 → 2NO 06-25 23:37
PROVIDERS: ADMIT Specialist; ATTEND Specialist
PROC: 0Y6H0Z3 Detachment at Right Lower Leg, Low, Open Approach (ICD-10-PCS; principal; 2019-06-20)
DX: A41.52 Sepsis due to Pseudomonas (principal); I21.A1 Myocardial infarction type 2; J96.01 Acute respiratory failure with hypoxia; N17.0 Acute kidney failure with tubular necrosis; E11.52 Type 2 diabetes mellitus with diabetic peripheral angiopathy with gangrene; I96 Gangrene, not elsewhere classified; I13.0 Hypertensive heart and chronic kidney disease with heart failure and stage 1 through stage 4 chronic kidney disease, or unspecified chronic kidney disease; N18.4 Chronic kidney disease, stage 4 (severe); I50.30 Unspecified diastolic (congestive) heart failure; N39.0 Urinary tract infection, site not specified; E11.22 Type 2 diabetes mellitus with diabetic chronic kidney disease; Z79.4 Long term (current) use of insulin; Z79.84 Long term (current) use of oral hypoglycemic drugs; Z98.42 Cataract extraction status, left eye; Z98.41 Cataract extraction status, right eye; Z90.49 Acquired absence of other specified parts of digestive tract; Z90.710 Acquired absence of both cervix and uterus; E78.5 Hyperlipidemia, unspecified; F17.210 Nicotine dependence, cigarettes, uncomplicated; F32.9 Major depressive disorder, single episode, unspecified; D64.9 Anemia, unspecified; E11.621 Type 2 diabetes mellitus with foot ulcer; L97.519 Non-pressure chronic ulcer of other part of right foot with unspecified severity; I25.10 Atherosclerotic heart disease of native coronary artery without angina pectoris; E83.42 Hypomagnesemia; B37.9 Candidiasis, unspecified
CPT/HCPCS: 36415; 36416; 36430; 71045; 80048; 80053; 81001; 82436; 82553; 82805; 83605; 83735; 83880; 84133; 84145; 84300; 84484; 85007; 85025; 85027; 85060; 85652; 86140; 86850; 86900; 86901; 87040; 87070; 87077; 87086; 87186; 87205; 88307; 89190; 93005; 93010; 93306; 94640; 94660; 96365; 96367; 96375; 96376; C9113; J0360; J0670; J0690; J0692; J1644; J1815; J1940; J2001; J2185; J2270; J2405; J2543; J2704; J3010; J3370; J3490; J7620; P9016; Q0163; Q5105